=== PATIENT | male | born 1960 | race Caucasian/White ===

== ENCOUNTER 2017-03-23 12:40 | Emergency (ER) | payer OTHER ==
[2017-03-23 12:48] VITALS: RESP 18
[2017-03-23] MEDS ORDERED: ASPIRIN 81 MG CHEW PO STA (13:07)
[2017-03-23] MEDS ORDERED: NITROGLYCERIN OINT 1 INCH/GM PACKET TOPICAL STA (13:07)
--- NOTE | 2017-03-23 13:09 | ED ---
General Adult HPI - General Chief complaint: Chest Pain Stated complaint: Chest Pain Time Seen by Provider: 03/23/17 12:50 Source: patient, RN notes reviewed Mode of arrival: wheelchair Limitations: no limitations - History of Present Illness Initial comments: This is a 57-year-old male who presents emergency Department complaining of chest pain since last night. Patient states it's a pressure/aching feeling. Patient states hasn't changed since last night. There is no radiation of the pain but he does state that there is more difficulty breathing. Patient denies any recent fever chills or cough. Patient denies palpitations. Patient denies any diaphoretic episodes. Patient denies any abdominal pain patient denies nausea vomiting diarrhea. Patient denies headache patient denies numbness weakness. Patient states he does have high blood pressure he is a diabetic and is on cholesterol medication. Patient states he also has had a stroke in the past. Patient states he continues to have some achiness in his chest currently. - Related Data Home Medications Medication Instructions Recorded Confirmed Apixaban [Eliquis] 5 mg PO DAILY 03/23/17 03/23/17 Aspirin 81 mg PO DAILY 03/23/17 03/23/17 Atenolol [Tenormin] 50 mg PO DAILY 03/23/17 03/23/17 Atorvastatin [Lipitor] 40 mg PO DAILY 03/23/17 03/23/17 Celecoxib [CeleBREX] 200 mg PO BID 03/23/17 03/23/17 HYDROcodone/APAP 10-325MG [[place] 2 tab PO Q4HR PRN 03/23/17 03/23/17 10-325] Losartan/Hydrochlorothiazide 1 tab PO DAILY 03/23/17 03/23/17 [Losartan-Hctz 100-25 mg Tab] Multivit-Min/FA/Lycopen/Lutein 1 tab PO DAILY 03/23/17 03/23/17 [Centrum Silver Men Tablet] Potassium Chloride [Klor-Con 20] 20 meq PO DAILY 03/23/17 03/23/17 amLODIPine [Norvasc] 10 mg PO DAILY 03/23/17 03/23/17 metFORMIN HCL 1,000 mg PO BID 03/23/17 03/23/17 Allergies Allergy/AdvReac Type Severity Reaction Status Date / Time No Known Allergies Allergy Verified 03/23/17 13:17 Review of Systems ROS Statement: Those systems with pertinent positive or pertinent negative responses have been documented in the HPI. ROS Other: All systems not noted in ROS Statement are negative. Past Medical History Past Medical History: CVA/TIA, Diabetes Mellitus, Deep Vein Thrombosis (DVT), Hyperlipidemia, Hypertension History of Any Multi-Drug Resistant Organisms: None Reported Past Surgical History: No Surgical Hx Reported Past Psychological History: No Psychological Hx Reported Smoking Status: Former smoker Past Alcohol Use History: None Reported Past Drug Use History: None Reported General Exam - General Exam Comments Initial Comments: GENERAL: Patient is well-developed and well-nourished. Patient is nontoxic and well- hydrated and is in mild distress. ENT: Neck is soft and supple. No significant lymphadenopathy is noted. Oropharynx is clear. Moist mucous membranes. Neck has full range of motion without eliciting any pain. EYES: The sclera were anicteric and conjunctiva were pink and moist. Extraocular movements were intact and pupils were equal round and reactive to light. Eyelids were unremarkable. PULMONARY: Unlabored respirations. Good breath sounds bilaterally. No audible rales rhonchi or wheezing was noted. CARDIOVASCULAR: There is a regular rate and rhythm without any murmurs gallops or rubs. ABDOMEN: Soft and nontender with normal bowel sounds. No palpable organomegaly was noted. There is no palpable pulsatile mass. SKIN: Skin is clear with no lesions or rashes and otherwise unremarkable. NEUROLOGIC: Patient is alert and oriented x3. Cranial nerves II through XII are grossly intact. Motor and sensory are also intact. Normal speech, volume and content. Symmetrical smile. MUSCULOSKELETAL: Normal extremities with adequate strength and full range of motion. No lower extremity swelling or edema. No calf tenderness. LYMPHATICS: No significant lymphadenopathy is noted PSYCHIATRIC: Normal psychiatric evaluation. Normal interpersonal interactions appears functionally intact in deals appropriately with others. No signs of depression. No signs of anxiety. Limitations: no limitations Course Vital Signs 03/23/17 03/23/17 12:46 13:48 Temperature 97.5 F L Pulse Rate 57 L 53 L Respiratory 18 18 Rate Blood Pressure 134/69 112/62 O2 Sat by Pulse 95 94 L Oximetry Medical Decision Making - Medical Decision Making EKG shows a normal sinus rhythm with some sinus arrhythmia at 60 bpm MD interval is 148 QRS is 96 Q-T intervals 418 QTC is 444. Patient states his chest pain was not relieved with nitroglycerin and he continued to have chest pain. All his labs came back I discussed the lab results with the patient and recommended the patient stay. He refused I told him that there could be detrimental, he didn't stay he stated he had a lot of things to do at home and wanted to leave. I told the patient he would have to sign out AGAINST MEDICAL ADVICE and he agreed that he would. Patient also stated he was only 5 minutes away. Patient's daughter was in the room at the time we had this conversation - Lab Data Result diagrams: 03/23/17 13:01 03/23/17 13:01 Lab Results 03/23/17 03/23/17 03/23/17 Range/Units 13: 13: 13:01 WBC 6.4 (3.8-10.6) k/uL RBC 4.79 (4.30-5.90) m/uL Hgb 14.3 (13.0-17.5) gm/dL Hct 42.4 (39.0-53.0) % MCV 88.5 (80.0-100.0) fL MCH 29.8 (25.0-35.0) pg MCHC 33.6 (31.0-37.0) g/dL RDW 14.1 (11.5-15.5) % Plt Count 180 (150-450) k/uL Neutrophils % 66 % Lymphocytes % 19 % Monocytes % 7 % Eosinophils % 5 % Basophils % 1 % Neutrophils # 4.2 (1.3-7.7) k/uL Lymphocytes # 1.2 (1.0-4.8) k/uL Monocytes # 0.4 (0-1.0) k/uL Eosinophils # 0.3 (0-0.7) k/uL Basophils # 0.0 (0-0.2) k/uL PT (9.0-12.0) sec INR (<1.2) APTT (22.0-30.0) sec Sodium 144 (137-145) mmol/L Potassium 4.0 (3.5-5.1) mmol/L Chloride 103 (98-107) mmol/L Carbon Dioxide 28 (22-30) mmol/L Anion Gap 13 mmol/L BUN 16 (9-20) mg/dL Creatinine 0.89 (0.66-1.25) mg/dL Est GFR (MDRD) Af Amer >60 (>60 ml/min/1.73 sqM) Est GFR (MDRD) Non-Af >60 (>60 ml/min/1.73 sqM) Glucose 108 H (74-99) mg/dL Calcium 9.2 (8.4-10.2) mg/dL Magnesium 1.7 (1.6-2.3) mg/dL Total Bilirubin 0.4 (0.2-1.3) mg/dL AST 17 (17-59) U/L ALT 34 (21-72) U/L Alkaline Phosphatase 97 (38-126) U/L Total Creatine Kinase 76 (55-170) U/L CK-MB (CK-2) 0.6 (0.0-2.4) ng/mL CK-MB (CK-2) Rel Index 0.8 Troponin I <0.012 (0.000-0.034) ng/mL Total Protein 6.9 (6.3-8.2) g/dL Albumin 4.3 (3.5-5.0) g/dL 03/23/17 Range/Units 13:01 WBC (3.8-10.6) k/uL RBC (4.30-5.90) m/uL Hgb (13.0-17.5) gm/dL Hct (39.0-53.0) % MCV (80.0-100.0) fL MCH (25.0-35.0) pg MCHC (31.0-37.0) g/dL RDW (11.5-15.5) % Plt Count (150-450) k/uL Neutrophils % % Lymphocytes % % Monocytes % % Eosinophils % % Basophils % % Neutrophils # (1.3-7.7) k/uL Lymphocytes # (1.0-4.8) k/uL Monocytes # (0-1.0) k/uL Eosinophils # (0-0.7) k/uL Basophils # (0-0.2) k/uL PT 10.3 (9.0-12.0) sec INR 1.0 (<1.2) APTT 24.7 (22.0-30.0) sec Sodium (137-145) mmol/L Potassium (3.5-5.1) mmol/L Chloride (98-107) mmol/L Carbon Dioxide (22-30) mmol/L Anion Gap mmol/L BUN (9-20) mg/dL Creatinine (0.66-1.25) mg/dL Est GFR (MDRD) Af Amer (>60 ml/min/1.73 sqM) Est GFR (MDRD) Non-Af (>60 ml/min/1.73 sqM) Glucose (74-99) mg/dL Calcium (8.4-10.2) mg/dL Magnesium (1.6-2.3) mg/dL Total Bilirubin (0.2-1.3) mg/dL AST (17-59) U/L ALT (21-72) U/L Alkaline Phosphatase (38-126) U/L Total Creatine Kinase (55-170) U/L CK-MB (CK-2) (0.0-2.4) ng/mL CK-MB (CK-2) Rel Index Troponin I (0.000-0.034) ng/mL Total Protein (6.3-8.2) g/dL Albumin (3.5-5.0) g/dL Disposition Clinical Impression: Unstable angina pectoris Disposition: Left Against Medical Advice Referrals: Guicho Kaur MD [Primary Care Provider] - 1-2 days Time of Disposition: 14:29
[2017-03-23 13:21] LABS: Basophils % (A) 1 %; Eosinophils # (A) 0.3 k/uL (0-0.7); Eosinophils % (A) 5 %; HCT 42.4 % (39.0-53.0); HDW 2.84; HGB 14.3 gm/dL (13.0-17.5); Luc # (Auto) 0.19; Luc % (Auto) 3; Lymphocytes # (A) 1.2 k/uL (1.0-4.8); Lymphocytes % (A) 19 %; MCH 29.8 pg (25.0-35.0); MCHC 33.6 g/dL (31.0-37.0); MCV 88.5 fL (80.0-100.0); Mean Platelet Volume 7.7; Monocytes # (A) 0.4 k/uL (0-1.0); Monocytes % (A) 7 %; Neutrophils # (A) 4.2 k/uL (1.3-7.7); Neutrophils % (A) 66 %; RBC 4.79 m/uL (4.30-5.90); RDW 14.1 % (11.5-15.5); WBC 6.4 k/uL (3.8-10.6); WBC (Perox) 6.49
[2017-03-23 13:29] LABS: Partial Thromboplastin Time 24.7 sec (22.0-30.0); Prothrombin Time 10.3 sec (9.0-12.0)
[2017-03-23 13:36] LABS: ALT 34 U/L (21-72); AST 17 U/L (17-59); Alkaline Phosphatase 97 U/L (38-126); Anion Gap 13 mmol/L; Blood Urea Nitrogen 16 mg/dL (9-20); Calcium 9.2 mg/dL (8.4-10.2); Carbon Dioxide 28 mmol/L (22-30); Chloride 103 mmol/L (98-107); Glucose 108 mg/dL (74-99); Magnesium 1.7 mg/dL (1.6-2.3); Non-African American GFR(MDRD) >60 (>60 ml/min/1.73 sqM); Sodium 144 mmol/L (137-145); Total Bilirubin 0.4 mg/dL (0.2-1.3); Total Protein 6.9 g/dL (6.3-8.2)
--- NOTE | 2017-03-23 13:36 | XR ---
EXAMINATION TYPE: XR chest 2V DATE OF EXAM: 03/23/2017 COMPARISON: NONE HISTORY: Chest pain TECHNIQUE: Frontal and lateral views of the chest are obtained. FINDINGS: There is no heart failure nor confluent pneumonic infiltrate. There are small calcified gr anuloma in the right lower lobe. Heart size is normal. There is no pleural effusion. Bony thorax is i ntact. IMPRESSION: No active cardiopulmonary disease.
[2017-03-23 13:43] LABS: Creatine Kinase 76 U/L (55-170)
[2017-03-23 13:55] LABS: Creatine Kinase MB 0.6 ng/mL (0.0-2.4); Troponin I <0.012 ng/mL (0.000-0.034)
[2017-03-23 14:42] VITALS: BP 127/84; PULSE 62; TEMP 98
== END 2017-03-23 14:41 | disposition left against medical advice (07) ==
LOC: EC 12:40
DX: I20.0 Unstable angina (principal); I49.8 Other specified cardiac arrhythmias; I10 Essential (primary) hypertension; E11.9 Type 2 diabetes mellitus without complications; E78.5 Hyperlipidemia, unspecified; Z53.29 Procedure and treatment not carried out because of patient's decision for other reasons; Z86.718 Personal history of other venous thrombosis and embolism; Z86.73 Personal history of transient ischemic attack (TIA), and cerebral infarction without residual deficits; Z79.01 Long term (current) use of anticoagulants; Z79.82 Long term (current) use of aspirin; Z79.84 Long term (current) use of oral hypoglycemic drugs; Z79.899 Other long term (current) drug therapy; Z87.891 Personal history of nicotine dependence
CPT/HCPCS: 36415; 71020; 80053; 82550; 82553; 83735; 84484; 85025; 85610; 85730; 93005; 99285

== ENCOUNTER → 2017-09-11 | Outpatient (CLI) | payer MEDICARE ==
--- NOTE | 2017-09-13 09:30 | MR ---
EXAMINATION TYPE: MR lumbar spine wo con DATE OF EXAM: 09/11/2017 COMPARISON: NONE HISTORY: Back pain and radiculopathy TECHNIQUE: Multiplanar, multisequence images of the lumbar spine were acquired. FINDINGS: There is mild anterior wedge compression deformity of the L2 vertebral body without bone ma rrow edema, therefore chronic. No retropulsion. Vertebral body height loss is less than 30% (approxim ately 27%). Remainder the vertebral body heights are maintained throughout the lumbar spine. Vertebra l body alignment is maintained throughout the lumbar spine. Multilevel disc desiccation is seen. Mult iple Schmorl's nodes are present as type II Modic endplate changes. L1-L2: There is a broad-based disc bulge resulting in mild bilateral neural foraminal narrowing. Mini mal facet arthropathy is present there is no spinal canal stenosis. No focal disc herniation. L2-L3: There is a broad-based disc bulge creating moderate bilateral neural foraminal narrowing in co mbination with facet arthropathy and mild spinal canal stenosis in combination with ligamentum flavum buckling. There is undulation of the nerve roots. L3-L4: There is a broad-based disc bulge creating moderate left and mild right neuroforaminal narrowi ng and moderate spinal canal stenosis. Ligamentum flavum buckling and facet arthropathy contribute to these findings and great buckling of the nerve roots. L4-L5: There is a broad-based disc bulge resulting in mild to moderate bilateral neural foraminal tiarra rowing and mild spinal canal stenosis. Again facet arthropathy and ligamentum flavum buckling contrib florina to these findings resulting in buckling of the nerve roots. L5-S1: There is a right eccentric disc bulge creating severe right neural foraminal narrowing and mil d left neural foraminal narrowing. Spinal canal remains patent. Facet arthropathy is seen. IMPRESSION: 1. Moderate multilevel degenerative disc disease resulting in multilevel spinal canal stenosis. Spina l canal stenosis is mild at L2-L3 and L4-L5 and moderate at L3-L4. There is also resultant variable d egree neural foraminal narrowing as described above. This is most severe on the right at L5. 2. Mild old anterior wedge compression deformity of L2 with no bone marrow edema or retropulsion. 3. No focal disc herniation.
== END | disposition home or self-care (01) ==
LOC: RADMRIMAIN 18:37
PROVIDERS: ATTEND Physical Medicine & Rehabilitation
DX: M48.061 Spinal stenosis, lumbar region without neurogenic claudication (principal); M99.73 Connective tissue and disc stenosis of intervertebral foramina of lumbar region; M51.36 Other intervertebral disc degeneration, lumbar region
CPT/HCPCS: 72148

== ENCOUNTER → 2018-03-21 | Outpatient (CLI) | payer MEDICARE ==
--- NOTE | 2018-03-21 10:03 | US ---
EXAMINATION TYPE: US renal artery duplex complet DATE OF EXAM: 03/21/2018 COMPARISON: NONE CLINICAL HISTORY: I10 essential hypertention. HTN for 10 years, uncontrolled for the past 2 days MEASUREMENTS: RENAL SIZE: Rt Kidney: 10.8 x 5.9 x 5.3cm Lt Kidney: 11.7 x 6.4 x 5.1cm RESISTANCE INDEX Right: 0.64 Left: 0.65 RA/AO RATIO (< 3.5 ) Right: 1.1 Left: 1.3 RA VELOCITY ( < 180 cm/s) Right: 154.1cm/s Left: 179.3cm/s Bladder appears unremarkable. *Technical limitations due to patient's body habitus and large amount of overlying bowel content. Vis ualized portions of abdominal aorta appear to have calcifications. Bilateral kidneys show no evidence of hydronephrosis. Right renal artery shows no evidence of stenosis as visualized. Limited evaluatio n of left renal artery due to overlying bowel content, unable to evaluate completely. Good upstroke a t segmentals at hilum. Low resistive waveforms noted throughout IMPRESSION: No convincing evidence of renal arterial stenosis although the left renal artery is suboptimally eval uated due to overlying bowel gas. No hydronephrosis or nephrolithiasis is visualized.
== END | disposition home or self-care (01) ==
LOC: RADUSMAIN 07:59
PROVIDERS: ATTEND Family Medicine
DX: I10 Essential (primary) hypertension (principal)
CPT/HCPCS: 93975

== ENCOUNTER → 2018-04-04 | Outpatient (CLI) | payer MEDICARE ==
--- NOTE | 2018-04-05 08:26 | ECHOF ---
Referral Reason:I10 Malignant Hypertension MEASUREMENTS -------- HEIGHT: 182.9 cm WEIGHT: 152.0 kg BP: 194/103 RVIDd: 3.9 cm (< 3.3) IVSd: 1.6 cm (0.6 - 1.1) LVIDd: 5.3 cm (3.9 - 5.3) LVPWd: 1.5 cm (0.6 - 1.1) IVSs: 1.8 cm LVIDs: 3.5 cm LVPWs: 1.9 cm LA Diam: 1.9 cm (2.7 - 3.8) LAESV Index (A-L): 30.28 ml/m Ao Diam: 3.2 cm (2.0 - 3.7) AV Cusp: 2.2 cm (1.5 - 2.6) MV EXCURSION: 16.009 mm (> 18.000) MV EF SLOPE: 99 mm/s (70 - 150) EPSS: 0.5 cm MV E Kemar: 1.03 m/s MV DecT: 274 ms MV A Kemar: 1.13 m/s MV E/A Ratio: 0.92 FINDINGS -------- Sinus rhythm. This was a technically adequate study. The left ventricular size is normal. There is moderate concentric left ventricular hypertrophy. O verall left ventricular systolic function is normal with, an EF between 55 - 60 %. The right ventricle is moderately enlarged. LA is midly dilated 29-33ml/m2. The right atrium is normal in size. There is mild aortic valve sclerosis. The mitral valve is normal. Mild mitral regurgitation is present. The tricuspid valve appears structurally normal. The pulmonic valve was not well visualized. There is no pulmonic regurgitation present. The aortic root size is normal. Normal inferior vena cava with normal inspiratory collapse consistent with estimated right atrial pre ssure of 5 mmHg. The inferior vena cava is mildly dilated. There is no pericardial effusion. CONCLUSIONS -------- 1. Sinus rhythm. 2. This was a technically adequate study. 3. The left ventricular size is normal. 4. There is moderate concentric left ventricular hypertrophy. 5. Overall left ventricular systolic function is normal with, an EF between 55 - 60 %. 6. The right ventricle is moderately enlarged. 7. LA is midly dilated 29-33ml/m2. 8. There is mild aortic valve sclerosis. 9. Mild mitral regurgitation is present. 10. The tricuspid valve appears structurally normal. 11. The pulmonic valve was not well visualized. 12. There is no pulmonic regurgitation present. 13. The aortic root size is normal. 14. Normal inferior vena cava with normal inspiratory collapse consistent with estimated right atrial pressure of 5 mmHg. 15. The inferior vena cava is mildly dilated. 16. There is no pericardial effusion. CLINICAL REHABILITATION SPECIALIST: Dinah Christina RDCS
== END | disposition home or self-care (01) ==
LOC: RADECHMAIN 12:51
PROVIDERS: ATTEND Family Medicine
DX: I34.0 Nonrheumatic mitral (valve) insufficiency (principal); I35.8 Other nonrheumatic aortic valve disorders
CPT/HCPCS: 93306

== ENCOUNTER 2020-10-01 22:44 | Observation (INO) | payer MEDICARE ==
[2020-10-01] MEDS ORDERED: SODIUM CHLORIDE 0.9% 1,000 ML IV STA (23:00)
[2020-10-01 23:06] LABS: Glucose,Whole Blood 425 mg/dL (75-99)
[2020-10-01 23:32] LABS: Basophils % (A) 1 %; Eosinophils # (A) 0.2 k/uL (0-0.7); Eosinophils % (A) 4 %; HCT 40.1 % (39.0-53.0); HGB 13.3 gm/dL (13.0-17.5); Lymphocytes # (A) 1.4 k/uL (1.0-4.8); Lymphocytes % (A) 29 %; MCH 28.2 pg (25.0-35.0); MCHC 33.1 g/dL (31.0-37.0); MCV 84.9 fL (80.0-100.0); Mean Platelet Volume 7.9; Monocytes # (A) 0.3 k/uL (0-1.0); Monocytes % (A) 7 %; Neutrophils # (A) 2.9 k/uL (1.3-7.7); Neutrophils % (A) 59 %; Platelet Count 182 k/uL (150-450); RBC 4.72 m/uL (4.30-5.90); RDW 13.5 % (11.5-15.5); WBC 4.9 k/uL (3.8-10.6)
--- NOTE | 2020-10-01 23:33 | ED ---
Neuro HPI - General Chief Complaint: Neuro Symptoms/Deficit Stated Complaint: Lt arm/leg numbness Time Seen by Provider: 10/01/20 23:00 Source: patient Mode of arrival: wheelchair Limitations: no limitations - Related Data Home Medications: Home Medications Medication Instructions Recorded Confirmed Apixaban [Eliquis] 5 mg PO DAILY 03/23/17 03/23/17 Aspirin 81 mg PO DAILY 03/23/17 03/23/17 Atorvastatin [Lipitor] 40 mg PO DAILY 03/23/17 03/23/17 Celecoxib [CeleBREX] 200 mg PO BID 03/23/17 03/23/17 HYDROcodone/APAP 10-325MG [[place] 2 tab PO Q4HR PRN 03/23/17 03/23/17 10-325] Losartan/Hydrochlorothiazide 1 tab PO DAILY 03/23/17 03/23/17 [Losartan-Hctz 100-25 mg Tab] Multivit-Min/FA/Lycopen/Lutein 1 tab PO DAILY 03/23/17 03/23/17 [Centrum Silver Men Tablet] Potassium Chloride [Klor-Con 20] 20 meq PO DAILY 03/23/17 03/23/17 amLODIPine [Norvasc] 10 mg PO DAILY 03/23/17 03/23/17 atenoloL [Tenormin] 50 mg PO DAILY 03/23/17 03/23/17 metFORMIN HCL 1,000 mg PO BID 03/23/17 03/23/17 Allergies/Adverse Reactions: Allergies Allergy/AdvReac Type Severity Reaction Status Date / Time No Known Allergies Allergy Verified 10/01/20 22:58 Review of Systems ROS Statement: Those systems with pertinent positive or pertinent negative responses have been documented in the HPI. ROS Other: All systems not noted in ROS Statement are negative. General Exam Limitations: no limitations Stroke MDM - Lab Data Result diagrams: 10/01/20 23:12 10/01/20 23:12 Lab Results 10/01/20 10/01/20 10/01/20 Range/Units 23:04 23:12 23:12 WBC 4.9 (3.8-10.6) k/uL RBC 4.72 (4.30-5.90) m/uL Hgb 13.3 (13.0-17.5) gm/dL Hct 40.1 (39.0-53.0) % MCV 84.9 (80.0-100.0) fL MCH 28.2 (25.0-35.0) pg MCHC 33.1 (31.0-37.0) g/dL RDW 13.5 (11.5-15.5) % Plt Count 182 (150-450) k/uL MPV 7.9 Neutrophils % 59 % Lymphocytes % 29 % Monocytes % 7 % Eosinophils % 4 % Basophils % 1 % Neutrophils # 2.9 (1.3-7.7) k/uL Lymphocytes # 1.4 (1.0-4.8) k/uL Monocytes # 0.3 (0-1.0) k/uL Eosinophils # 0.2 (0-0.7) k/uL Basophils # 0.0 (0-0.2) k/uL PT 10.4 (9.0-12.0) sec INR 1.0 (<1.2) APTT 22.7 (22.0-30.0) sec Sodium (137-145) mmol/L Potassium (3.5-5.1) mmol/L Chloride (98-107) mmol/L Carbon Dioxide (22-30) mmol/L Anion Gap mmol/L BUN (9-20) mg/dL Creatinine (0.66-1.25) mg/dL Est GFR (CKD-EPI)AfAm (>60 ml/min/1.73 sqM) Est GFR (CKD-EPI)NonAf (>60 ml/min/1.73 sqM) Glucose (74-99) mg/dL POC Glucose (mg/dL) 425 H (75-99) mg/dL POC Glu Welding Machine Operator ID Hortencia Graham Calcium (8.4-10.2) mg/dL Total Bilirubin (0.2-1.3) mg/dL AST (17-59) U/L ALT (4-49) U/L Alkaline Phosphatase (38-126) U/L Troponin I (0.000-0.034) ng/mL Total Protein (6.3-8.2) g/dL Albumin (3.5-5.0) g/dL 10/01/20 10/01/20 Range/Units 23:12 23:12 WBC (3.8-10.6) k/uL RBC (4.30-5.90) m/uL Hgb (13.0-17.5) gm/dL Hct (39.0-53.0) % MCV (80.0-100.0) fL MCH (25.0-35.0) pg MCHC (31.0-37.0) g/dL RDW (11.5-15.5) % Plt Count (150-450) k/uL MPV Neutrophils % % Lymphocytes % % Monocytes % % Eosinophils % % Basophils % % Neutrophils # (1.3-7.7) k/uL Lymphocytes # (1.0-4.8) k/uL Monocytes # (0-1.0) k/uL Eosinophils # (0-0.7) k/uL Basophils # (0-0.2) k/uL PT (9.0-12.0) sec INR (<1.2) APTT (22.0-30.0) sec Sodium 134 L (137-145) mmol/L Potassium 3.1 L (3.5-5.1) mmol/L Chloride 90 L (98-107) mmol/L Carbon Dioxide 33 H (22-30) mmol/L Anion Gap 11 mmol/L BUN 19 (9-20) mg/dL Creatinine 1.25 (0.66-1.25) mg/dL Est GFR (CKD-EPI)AfAm 71 (>60 ml/min/1.73 sqM) Est GFR (CKD-EPI)NonAf 62 (>60 ml/min/1.73 sqM) Glucose 427 H (74-99) mg/dL POC Glucose (mg/dL) (75-99) mg/dL POC Glu Welding Machine Operator ID Calcium 9.2 (8.4-10.2) mg/dL Total Bilirubin 0.5 (0.2-1.3) mg/dL AST 15 L (17-59) U/L ALT 19 (4-49) U/L Alkaline Phosphatase 102 (38-126) U/L Troponin I <0.012 (0.000-0.034) ng/mL Total Protein 7.1 (6.3-8.2) g/dL Albumin 4.3 (3.5-5.0) g/dL - EKG Data -: EKG Interpreted by Me (PG shows sinus rhythm 83 IA 158 QRS 158 QTc 517) Past Medical History Past Medical History: CVA/TIA, Diabetes Mellitus, Deep Vein Thrombosis (DVT), Hyperlipidemia, Hypertension History of Any Multi-Drug Resistant Organisms: None Reported Past Surgical History: No Surgical Hx Reported Past Psychological History: No Psychological Hx Reported Smoking Status: Never smoker Past Alcohol Use History: None Reported Past Drug Use History: None Reported Course Vital Signs 10/01/20 10/01/20 10/02/20 22:51 23:00 01:23 Temperature 98.3 F Pulse Rate 81 78 80 Respiratory 20 18 18 Rate Blood Pressure 195/82 137/82 135/79 O2 Sat by Pulse 96 98 98 Oximetry Disposition Clinical Impression: Cerebrovascular accident (CVA), Transient cerebral ischemia Disposition: ADMITTED IP TO THIS HOSP Condition: Fair Is patient prescribed a controlled substance at d/c from ED?: No Referrals: Lilian Guillory MD [Primary Care Provider] - 1-2 days
--- NOTE | 2020-10-01 23:33 | CT ---
EXAMINATION TYPE: CT brain wo con for TPA DATE OF EXAM: 10/01/2020 COMPARISON: None HISTORY: left arm and leg numbness. rule out stroke CT DLP: 1131.4 mGycm Automated exposure control for dose reduction was used. There is mild cerebral atrophy. There is no mass effect nor midline shift. There is no sign of intrac ranial hemorrhage. There is white matter and shi matter hypodensity that measures 4 x 2 cm in the ri ght posterior frontal lobe. The calvarium is intact. The skull base is intact. There is mild white ma tter hypodensity also in the left frontal lobe. IMPRESSION: There is old or subacute shi and white matter infarct right posterior frontal lobe. No hemorrhage. S mall old lacunar infarct in the white matter left frontal lobe.
[2020-10-01 23:41] LABS: Partial Thromboplastin Time 22.7 sec (22.0-30.0); Prothrombin Time 10.4 sec (9.0-12.0)
[2020-10-01 23:45] LABS: Albumin 4.3 g/dL (3.5-5.0); Calcium 9.2 mg/dL (8.4-10.2); Potassium 3.1 mmol/L (3.5-5.1); Total Bilirubin 0.5 mg/dL (0.2-1.3); Total Protein 7.1 g/dL (6.3-8.2)
--- NOTE | 2020-10-02 00:39 | CT ---
EXAMINATION TYPE: CT angio head neck DATE OF EXAM: 10/02/2020 COMPARISON: None HISTORY: Left arm/leg numbness. history of previous stroke CT DLP: 937.5 mGycm Automated exposure control for dose reduction was used. CONTRAST: Performed with IV Contrast, patient injected with 65ml used 35 wasted mL of Isovue 370. Images were obtained from the aortic arch to the vertex of the brain with IV contrast and 3-D post pr ocessed images. There is no evidence of aneurysm at the aortic arch. There is normal branching pattern of the great v essels on the aortic arch. There is bilateral arterial flow in the subclavian arteries. There is augustin rial flow in the common internal and external carotid arteries bilaterally. There is some plaque form ation at the carotid artery bifurcations and approximate 30% stenosis of the proximal right internal carotid artery. There is less than 10% stenosis proximal left internal carotid artery. There is arter ial flow in the left vertebral artery. I see no flow in the right vertebral artery. There is no evide nce of carotid or vertebral artery aneurysm. There is arterial flow in the vertebrobasilar artery system. There is arterial flow in the anterior middle and posterior cerebral arteries bilaterally. There is n o mass effect. I see no evidence of intracranial aneurysm or neovascularity. I see no evidence of int racranial hemodynamic arterial stenosis. There is normal contrast opacification of the venous sinuses . There is evidence of infarct in the right posterior frontal lobe but no evidence of hemodynamic yuriy nosis of the right anterior cerebral artery. 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 Mild plaque formation at the carotid artery bifurcations without evidence of hemodynamic stenosis of the carotid arteries.
[2020-10-02] MEDS ORDERED: ASPIRIN 325 MG TAB PO STA (00:57)
[2020-10-02] MEDS ORDERED: POTASSIUM BICARBONATE/CIT AC 20 MEQ TABLET.EFF PO ONE (00:57)
[2020-10-02] MEDS ORDERED: SODIUM CHLORIDE 0.9% 1,000 ML IV SCH (01:00)
[2020-10-02] MEDS: SODIUM CHLORIDE 0.9% 1,000 ML IV SCH ×2 (01:33→11:28)
--- NOTE | 2020-10-02 04:15 | P.HPIM ---
History of Present Illness H&P Date: 10/02/20 Patient is a 58-year-old male with a PMH of type II DM, hypertension, hyperlipidemia, history of DVT on Eliquis, chronic left lower extremity edema, and history of CVA with residual left-sided weakness who presented to the emergency room with left arm numbness and tingling. The patient reports that he was in his usual state of health and had fallen asleep on the couch watching television earlier today when he woke up to his left arm feeling numb at around 2 PM. He initially thought that he may have slept the wrong way but the numbness persisted after 1-2 hours, at which time he became alarmed and decided to come to the emergency room. The patient notes that he initially suffered a CVA with left-sided paresis 5 years ago continues to need a cane to walk. Aside from the left arm numbness and tingling extending up to the shoulder, he denied additional complaints. Denied weakness, numbness, tingling elsewhere. Denied visual changes, facial drooping, speech abnormalities, or gait abnormalities. He notes that the tingling has improved somewhat since initial onset. In the emergency room, a brain CT revealed old versus subacute shi and white matter infarct in the right posterior frontal lobe along with a small old lacunar infarct in the white matter in the left frontal lobe. 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 EKG revealed normal sinus rhythm at 83 bpm with T-wave inversions in leads V1 to V2. Laboratory evaluation was remarkable for a sodium 134, potassium 3.1, chloride 90, CO2 33, glucose 427. Review of Systems Pertinent positives and negatives as discussed in HPI, a complete review of systems was performed and all other systems are negative. Past Medical History Past Medical History: CVA/TIA, Diabetes Mellitus, Deep Vein Thrombosis (DVT), Hypertension Additional Past Medical History / Comment(s): CVA 5 yrs ago, perforated lumbar disk History of Any Multi-Drug Resistant Organisms: None Reported Past Surgical History: No Surgical Hx Reported Past Anesthesia/Blood Transfusion Reactions: No Reported Reaction Past Psychological History: No Psychological Hx Reported Smoking Status: Former smoker Past Alcohol Use History: None Reported Additional Past Alcohol Use History / Comment(s): stopped smoking in 2015 Past Drug Use History: None Reported Medications and Allergies Home Medications Medication Instructions Recorded Confirmed Type Apixaban [Eliquis] 5 mg PO DAILY 03/23/17 03/23/17 History Aspirin 81 mg PO DAILY 03/23/17 03/23/17 History Atorvastatin [Lipitor] 40 mg PO DAILY 03/23/17 03/23/17 History Celecoxib [CeleBREX] 200 mg PO BID 03/23/17 03/23/17 History HYDROcodone/APAP 10-325MG [[place] 2 tab PO Q4HR PRN 03/23/17 03/23/17 History 10-325] Losartan/Hydrochlorothiazide 1 tab PO DAILY 03/23/17 03/23/17 History [Losartan-Hctz 100-25 mg Tab] Multivit-Min/FA/Lycopen/Lutein 1 tab PO DAILY 03/23/17 03/23/17 History [Centrum Silver Men Tablet] Potassium Chloride [Klor-Con 20] 20 meq PO DAILY 03/23/17 03/23/17 History amLODIPine [Norvasc] 10 mg PO DAILY 03/23/17 03/23/17 History atenoloL [Tenormin] 50 mg PO DAILY 03/23/17 03/23/17 History metFORMIN HCL 1,000 mg PO BID 03/23/17 03/23/17 History Allergies Allergy/AdvReac Type Severity Reaction Status Date / Time No Known Allergies Allergy Verified 10/01/20 22:58 Physical Exam Vitals: Vital Signs Temp Pulse Pulse Resp BP BP Pulse Ox 10/02/20 03:32 98.1 F 66 18 164/106 99 10/02/20 01:54 98.1 F 66 18 164/106 99 10/02/20 01:23 80 18 135/79 98 10/01/20 23:00 78 18 137/82 98 10/01/20 22:51 98.3 F 81 20 195/82 96 Intake and Output 10/01/20 10/01/20 10/02/20 14:59 22:59 06:59 Other: Weight 145.15 kg 146.77 kg General: non toxic, no distress, appears at stated age, morbidly obese Derm: no unusual rashes/lesions no unusual ecchymoses, warm, dry Head: atraumatic, normocephalic, symmetric Eyes: EOMI, no lid lag, anicteric sclera, pupils equal round reactive to light ENT: Nose and ears atraumatic, no thrush, no pharyngeal erythema Neck: No thyromegaly, no cervical lymphadenopathy, trachea midline, supple Mouth: no lip lesion, mucus membranes moist Cardiovascular: S1S2 reg, no murmur, positive posterior tibial pulse bilateral, left lower extremity 2+ pitting edema to knees with chronic venous stasis changes, capillary refill less than 2 seconds Lungs: CTA bilateral, no rhonchi, no rales , no accessory muscle use Abdominal: soft, nontender to palpation, no guarding, no appreciable organomegaly, normal bowel sounds Ext: no gross muscle atrophy, muscle strength 4 out of 5 in left upper and lower extremities with strength 5 out of 5 on right upper and lower extremities, no contractures, Neuro: CN II-XI grossly intact, light touch intact all 4 extremities, finger to nose within normal limits Psych: Alert, oriented, appropriate affect Results CBC & Chem 7: 10/01/20 23:12 10/01/20 23:12 Labs: Abnormal Lab Results - Last 24 Hours (Table) 10/01/20 10/01/20 Range/Units 23:04 23:12 Sodium 134 L (137-145) mmol/L Potassium 3.1 L (3.5-5.1) mmol/L Chloride 90 L (98-107) mmol/L Carbon Dioxide 33 H (22-30) mmol/L Glucose 427 H (74-99) mg/dL POC Glucose (mg/dL) 425 H (75-99) mg/dL AST 15 L (17-59) U/L Thrombosis Risk Factor Assmnt - Choose All That Apply Any of the Below Risk Factors Present?: No Other Risk Factors: Yes Each Risk Factor Represents 2 Points: Age 61-74 years Each Risk Factor Represents 3 Points: History of DVT/PE Other congenital or acquired thrombophilia - If yes, enter type in comment: Yes Each Risk Factor Represents 5 Points: Stroke (< 1 month) Thrombosis Risk Factor Assessment Total Risk Factor Score: 10 Thrombosis Risk Factor Assessment Level: High Risk Assessment and Plan Plan: TIA versus CVA -Continue with aspirin -Neurology consult -Echocardiogram -Neuro checks every 4 hourly -Fall precautions -Swallow evaluation Hypokalemia -Replace and monitor Chronic conditions: Type II DM, hypertension, hyperlipidemia, history of DVTs -Continue with home medications -Check A1c -Lispro insulin sliding scale blood glucose monitoring DVT prophylaxis -Eliquis The patient is admitted with an anticipated less than 2 midnight stay for evaluation of CVA vs TIA CODE STATUS: Full Code Discussed with: Patient Anticipated discharge date: 1-[address]: Home A total of 35 minutes was spent on the care of this complex patient more than 50% of the time was spent in counseling and care coordination.
[2020-10-02 06:06] LABS: Glucose,Whole Blood 226 mg/dL (75-99)
[2020-10-02] MEDS: POTASSIUM CHLORIDE ER 20 MEQ TAB.ER PO SCH ×2 (06:33→11:25)
[2020-10-02] MEDS: INSULIN ASPART (NovoLOG) 100 UNIT/ML VIAL SQ SCH ×2 (06:33→12:46)
[2020-10-02 08:47] LABS: HCT 34.5 % (39.0-53.0); HGB 11.7 gm/dL (13.0-17.5); MCV 85.3 fL (80.0-100.0); Mean Platelet Volume 7.4; Platelet Count 150 k/uL (150-450); RBC 4.05 m/uL (4.30-5.90); RDW 13.1 % (11.5-15.5); WBC 4.4 k/uL (3.8-10.6)
[2020-10-02] MEDS ORDERED: ASPIRIN 81 MG PO SCH (09:00)
[2020-10-02 09:07] LABS: Calcium 8.6 mg/dL (8.4-10.2); Potassium 3.1 mmol/L (3.5-5.1)
[2020-10-02] MEDS ORDERED: ATORVASTATIN 40 MG TAB PO SCH (10:45)
[2020-10-02] MEDS ORDERED: DULoxetine HCL 60 MG CAPSULE.DR PO SCH (10:45)
[2020-10-02] MEDS ORDERED: cloNIDine HCL 0.2 MG TAB PO SCH (10:45)
[2020-10-02] MEDS ORDERED: MELOXICAM 7.5 MG TAB PO SCH (10:45)
[2020-10-02 11:34] LABS: Glucose,Whole Blood 224 mg/dL (75-99)
[2020-10-02] MEDS ORDERED: HYDROcodone/APAP 10-325MG 1 EACH TAB PO SCH ×2 (11:45→21:00)
--- NOTE | 2020-10-02 12:56 | P.CNNES ---
History of Present Illness Consult date: 10/02/20 Requesting physician: Zach Wynn Reason for Consult: CVA, TIA History of Present Illness: Patient is a 60-year-old male with history of hypertension, diabetes, hyperlipidemia, history of DVT and history of CVA with residual left leg weakness came to the hospital yesterday at 10:44 PM with left arm numbness and tingling. Patient states that he took a nap for an hour in his recliner from 5 to 6 PM. When he woke up at around 6, he noticed numbness of the left arm as if it was asleep. He does not remember sleeping with leaning on the left side, and the arm rest of the recliner is soft. He denied any weakness of the left upper extremity or anywhere else, slurred speech facial droop, problem with the vision no headache or diplopia. Gait was fine. He waited, as the symptoms persisted for couple hours, he decided to come to the ER. Vital signs on arrival blood pressure 195/82, pulse rate 81 temperature 98.3. Most recent blood pressure is 164/106 Patient takes metformin, aspirin 81 mg, Celebrex 200 mg twice a day, Lipitor 40 mg, Eliquis 5 mg daily, [place] atenolol, Flexeril, chlorthalidone, hydralazine, Cymbalta 60 mg, B12, clonidine 0.2 mg 3 times a day, Lasix 40 mg and gabapentin 800 mg [address] head showed old or subacute shi-white matter infarct right posterior frontal lobe. No hemorrhage. Small old lacunar infarct in the white matter left frontal lobe. On my review, the infarct is chronic, and involves the right JOANN territory parasagittal region frontal lobe. 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 Mild plaque formation at the carotid artery bifurcations without evidence of hemodynamic stenosis of the carotid arteries. Patient's blood test shows normal CBC, PT/PTT, sodium 134 potassium 3.1, normal renal functions. Hepatic panel is normal. Troponin negative. Ramirez virus PCR negative. Patient states that he had suffered from a stroke 5 years ago, which mainly effected his left leg. Patient states that symptoms have improved, but he has difficulty with walking in his left knee rupert up, and it hurts all the time and swells up. Patient states that at the time of stroke was also diagnosed with bilateral DVT for which he is on anticoagulation. He has diabetes. Patient states that he smoked 3 packs per day for 30 years, quit 5 years ago. Review of Systems As above in detail. All other review of systems completely unremarkable. Denies any chest pain shortness of breath wheezing or cough. He denies abdominal pain nausea vomiting diarrhea. Past Medical History Past Medical History: CVA/TIA, Diabetes Mellitus, Deep Vein Thrombosis (DVT), Hypertension Additional Past Medical History / Comment(s): CVA 5 yrs ago, perforated lumbar disk History of Any Multi-Drug Resistant Organisms: None Reported Past Surgical History: No Surgical Hx Reported Past Anesthesia/Blood Transfusion Reactions: No Reported Reaction Past Psychological History: No Psychological Hx Reported Smoking Status: Former smoker Past Alcohol Use History: None Reported Additional Past Alcohol Use History / Comment(s): stopped smoking in 2015 Past Drug Use History: None Reported Medications and Allergies Home Medications Medication Instructions Recorded Confirmed Type Apixaban [Eliquis] 5 mg PO DAILY 03/23/17 10/02/20 History Aspirin 81 mg PO DAILY 03/23/17 10/02/20 History Atorvastatin [Lipitor] 40 mg PO DAILY 03/23/17 10/02/20 History Celecoxib [CeleBREX] 200 mg PO BID 03/23/17 10/02/20 History HYDROcodone/APAP 10-325MG [[place] 2 tab PO BID 03/23/17 10/02/20 History 10-325] Multivit-Min/FA/Lycopen/Lutein 1 tab PO DAILY 03/23/17 10/02/20 History [Centrum Silver Men Tablet] Potassium Chloride [Klor-Con 20] 20 meq PO DAILY 03/23/17 10/02/20 History atenoloL [Tenormin] 50 mg PO DAILY 03/23/17 10/02/20 History metFORMIN HCL 1,000 mg PO BID 03/23/17 10/02/20 History Chlorthalidone 25 mg PO DAILY 10/02/20 10/02/20 History Cyanocobalamin (Vitamin B-12) 1,000 mcg PO DAILY 10/02/20 10/02/20 History [Vitamin B-12] Cyclobenzaprine [Flexeril] 10 mg PO BID 10/02/20 10/02/20 History DULoxetine HCL [Cymbalta] 60 mg PO DAILY 10/02/20 10/02/20 History Furosemide [Lasix] 40 mg PO DAILY 10/02/20 10/02/20 History Gabapentin [Neurontin] 800 mg PO TID 10/02/20 10/02/20 History cloNIDine HCL [Catapres] 0.2 mg PO TID 10/02/20 10/02/20 History hydrALAZINE HCL 50 mg PO TID 10/02/20 10/02/20 History Allergies Allergy/AdvReac Type Severity Reaction Status Date / Time No Known Allergies Allergy Verified 10/02/20 09:02 Physical Examination - Vital Signs Vital Signs: Vital Signs Temp Pulse Pulse Resp BP BP Pulse Ox 10/02/20 03:32 98.1 F 66 18 164/106 99 10/02/20 01:54 98.1 F 66 18 164/106 99 10/02/20 01:23 80 18 135/79 98 10/01/20 23:00 78 18 137/82 98 10/01/20 22:51 98.3 F 81 20 195/82 96 Intake and Output 10/01/20 10/02/20 10/02/20 22:59 06:59 14:59 Other: # Voids 1 Weight 145.15 kg 146.7 kg On examination patient is a late middle aged male, in no acute distress. Patient is alert, awake oriented to time place and person, speech and language functions are normal. Attention, concentration and fund of knowledge adequate. On cranial nerve exam his pupils are round and reactive to light, visual paula are full on confrontation, extraocular muscles are intact with no nystagmus. Face is symmetric, tongue protrudes to the midline. Palatal elevation and sensation normal, hearing and shoulder shrug normal. On muscle strength testing there is no pronator drift and the strength is normal in both arms distally and proximally. The strength is normal in the right lower limb. In the left lower limb, his hip flexion is 5, knee extension 5-, ankle dorsiflexion 5, toe extension 5-. Reflexes are absent and plantars are downgoing. Sensory touch is equal with no neglect. No ataxia for [id number] testing, tone and bulk of muscles normal. Gait deferred. On general examination is a carotid bruit, service audible, abdomen soft nontender. Peripheral pulses present. Results - Laboratory Findings CBC and BMP: 10/02/20 07:59 10/02/20 07:59 Abnormal Lab Findings: Abnormal Labs 10/01/20 10/01/20 10/02/20 23:04 23:12 06:04 RBC Hgb Hct Sodium 134 L Potassium 3.1 L Chloride 90 L Carbon Dioxide 33 H Glucose 427 H POC Glucose (mg/dL) 425 H 226 H AST 15 L 10/02/20 10/02/20 07:59 07:59 RBC 4.05 L Hgb 11.7 L Hct 34.5 L Sodium 135 L Potassium 3.1 L Chloride 93 L Carbon Dioxide 37 H Glucose 213 H POC Glucose (mg/dL) AST Assessment and Plan Assessment: * Possible TIA manifesting with transient left arm numbness, that now seems to have resolved. * History of CVA with residual mild left leg weakness. 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 * Hypertension * Diabetes * X tobacco use. Plan: * Patient's symptoms have now mostly resolved. * Continue Apixaban and aspirin 81 mg. Unsure why the dose of Eliaqis is 5 mg once daily. Consider increasing dose to twice a day. * Await hemoglobin A1c and lipid panel. * Await 2-D echo. * Continue telemetry monitoring. * Dr. Javy Angelo will resume neurology service in the morning. Addendum: 2-D echo not performed, as patient signed out AGAINST MEDICAL ADVICE Hemoglobin A1c 9.0 consistent with poorly controlled diabetes Lipid panel not checked as patient signed out AGAINST MEDICAL ADVICE.
[2020-10-02 13:57] VITALS: BP 179/73; PULSE 67; RESP 17; TEMP 97.8
[2020-10-02] MEDS ORDERED: GABAPENTIN 400 MG CAP PO SCH (16:00)
--- NOTE | 2020-10-02 17:31 | P.DS ---
Providers Date of admission: 10/02/20 00:57 Expected date of discharge: 10/02/20 Attending physician: Teddy Hall MD Consults: 10/02/20 00:57 Consult Physician Routine Consulting Provider: Teddy Avila Consult Reason/Comments: cvaTIA Do you want consulting provider notified?: Yes Primary care physician: Lilian Guillory MD Hospital Course: 58-year-old male with a PMH of type II DM, hypertension, hyperlipidemia, history of DVT on Eliquis, chronic left lower extremity edema, and history of CVA with residual left-sided weakness who presented to the emergency room with left arm numbness and tingling. The patient reports that he was in his usual state of health and had fallen asleep on the couch watching television earlier today when he woke up to his left arm feeling numb at around 2 PM. He initially thought that he may have slept the wrong way but the numbness persisted after 1- 2 hours, at which time he became alarmed and decided to come to the emergency room. The patient notes that he initially suffered a CVA with left-sided paresis 5 years ago continues to need a cane to walk. Aside from the left arm numbness and tingling extending up to the shoulder, he denied additional complaints. Denied weakness, numbness, tingling elsewhere. Denied visual changes, facial drooping, speech abnormalities, or gait abnormalities. He notes that the tingling has improved somewhat since initial onset. In the emergency room, a brain CT revealed old versus subacute shi and white matter infarct in the right posterior frontal lobe along with a small old lacunar infarct in the white matter in the left frontal lobe. 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 EKG revealed normal sinus rhythm at 83 bpm with T-wave inversions in leads V1 to V2. Laboratory evaluation was remarkable for a sodium 134, potass ium 3.1, chloride 90, CO2 33, glucose 427. Patient was admitted for complete TIA workup. Echo was ordered and patient was placed on telemetry. Patient was seen by neurology service who advised inc reasing the eliquis dose to 5 mg twice a day. Today patient was very eager to leave the hospital and he actually signed AGAINST MEDICAL ADVICE. Patient Condition at Discharge: Fair Plan - Discharge Summary Discharge Rx Participant: No New Discharge Prescriptions: No Action metFORMIN HCL 1,000 mg PO BID Aspirin 81 mg PO DAILY Potassium Chloride [Klor-Con 20] 20 meq PO DAILY Celecoxib [CeleBREX] 200 mg PO BID Atorvastatin [Lipitor] 40 mg PO DAILY Apixaban [Eliquis] 5 mg PO DAILY HYDROcodone/APAP 10-325MG [[place] 10-325] 2 tab PO BID atenoloL [Tenormin] 50 mg PO DAILY Multivit-Min/FA/Lycopen/Lutein [Centrum Silver Men Tablet] 1 tab PO DAILY Cyclobenzaprine [Flexeril] 10 mg PO BID Chlorthalidone 25 mg PO DAILY hydrALAZINE HCL 50 mg PO TID DULoxetine HCL [Cymbalta] 60 mg PO DAILY Cyanocobalamin (Vitamin B-12) [Vitamin B-12] 1,000 mcg PO DAILY cloNIDine HCL [Catapres] 0.2 mg PO TID Furosemide [Lasix] 40 mg PO DAILY Gabapentin [Neurontin] 800 mg PO TID Discharge Medication List Apixaban [Eliquis] 5 mg PO DAILY 03/23/17 [History] Aspirin 81 mg PO DAILY 03/23/17 [History] Atorvastatin [Lipitor] 40 mg PO DAILY 03/23/17 [History] Celecoxib [CeleBREX] 200 mg PO BID 03/23/17 [History] HYDROcodone/APAP 10-325MG [[place] 10-325] 2 tab PO BID 03/23/17 [History] Multivit-Min/FA/Lycopen/Lutein [Centrum Silver Men Tablet] 1 tab PO DAILY 03/23/17 [History] Potassium Chloride [Klor-Con 20] 20 meq PO DAILY 03/23/17 [History] atenoloL [Tenormin] 50 mg PO DAILY 03/23/17 [History] metFORMIN HCL 1,000 mg PO BID 03/23/17 [History] Chlorthalidone 25 mg PO DAILY 10/02/20 [History] Cyanocobalamin (Vitamin B-12) [Vitamin B-12] 1,000 mcg PO DAILY 10/02/20 [History] Cyclobenzaprine [Flexeril] 10 mg PO BID 10/02/20 [History] DULoxetine HCL [Cymbalta] 60 mg PO DAILY 10/02/20 [History] Furosemide [Lasix] 40 mg PO DAILY 10/02/20 [History] Gabapentin [Neurontin] 800 mg PO TID 10/02/20 [History] cloNIDine HCL [Catapres] 0.2 mg PO TID 10/02/20 [History] hydrALAZINE HCL 50 mg PO TID 10/02/20 [History] Follow up Appointment(s)/Referral(s): Teddy Avila MD [STAFF PHYSICIAN] - 1 Week Lilian Guillory MD [Primary Care Provider] - 1-2 days Patient Instructions/Handouts: Transient Ischemic Attack (DC) Discharge Disposition: Left Against Medical Advice
[2020-10-03] MEDS ORDERED: ASPIRIN 325 MG TAB PO SCH (00:57)
== END 2020-10-02 15:00 | disposition left against medical advice (07) ==
LOC: EC 22:44 → 3SCARD 10-02 00:57
PROVIDERS: ADMIT Internal Medicine; ATTEND Internal Medicine
DX: R20.0 Anesthesia of skin (principal); R20.2 Paresthesia of skin; E87.6 Hypokalemia; I65.01 Occlusion and stenosis of right vertebral artery; I69.354 Hemiplegia and hemiparesis following cerebral infarction affecting left non-dominant side; E11.9 Type 2 diabetes mellitus without complications; I10 Essential (primary) hypertension; E78.5 Hyperlipidemia, unspecified; M51.26 Other intervertebral disc displacement, lumbar region; R60.0 Localized edema; Z53.29 Procedure and treatment not carried out because of patient's decision for other reasons; Z79.01 Long term (current) use of anticoagulants; Z79.82 Long term (current) use of aspirin; Z79.899 Other long term (current) drug therapy; Z79.1 Long term (current) use of non-steroidal anti-inflammatories (NSAID); Z79.84 Long term (current) use of oral hypoglycemic drugs; Z86.718 Personal history of other venous thrombosis and embolism; Z87.891 Personal history of nicotine dependence; Z20.828 Contact with and (suspected) exposure to other viral communicable diseases
CPT/HCPCS: 96360; 96361; 99285; 36415; 93005; 80053; 80048; 84484; 85025; 85027; 85610; 85730; 83036; 87635; 70496; 70450; 70498; G0378; Q9967

== ENCOUNTER 2022-08-03 23:52 | Emergency (ER) | payer MEDICARE ==
[2022-08-03 23:56] VITALS: TEMP 98.2
[2022-08-04] MEDS ORDERED: ASPIRIN 81 MG PO STA (00:21)
[2022-08-04 00:53] LABS: Basophils % (A) 1 %; Eosinophils # (A) 0.1 k/uL (0-0.7); Eosinophils % (A) 3 %; HCT 37.7 % (39.0-53.0); Lymphocytes # (A) 1.8 k/uL (1.0-4.8); Lymphocytes % (A) 35 %; MCH 28.6 pg (25.0-35.0); MCHC 34.6 g/dL (31.0-37.0); MCV 82.8 fL (80.0-100.0); Mean Platelet Volume 8.1; Monocytes # (A) 0.4 k/uL (0-1.0); Monocytes % (A) 7 %; Neutrophils # (A) 2.8 k/uL (1.3-7.7); Neutrophils % (A) 52 %; Platelet Count 166 k/uL (150-450); RBC 4.55 m/uL (4.30-5.90); RDW 13.6 % (11.5-15.5); WBC 5.3 k/uL (3.8-10.6)
[2022-08-04 01:02] LABS: Albumin 4.1 g/dL (3.5-5.0); Calcium 8.8 mg/dL (8.4-10.2); Magnesium 1.8 mg/dL (1.6-2.3); Potassium 3.2 mmol/L (3.5-5.1); Total Bilirubin 0.3 mg/dL (0.2-1.3); Total Protein 6.6 g/dL (6.3-8.2)
--- NOTE | 2022-08-04 01:03 | XR ---
EXAMINATION TYPE: XR chest 2V DATE OF EXAM: 08/04/2022 COMPARISON: NONE HISTORY: Chest pain TECHNIQUE: 2 views FINDINGS: Heart is normal. Lungs are clear. Diaphragm is normal. Bony thorax is intact. IMPRESSION: Normal chest. No change.
[2022-08-04 01:06] LABS: Partial Thromboplastin Time 26.5 sec (22.0-30.0); Prothrombin Time 10.9 sec (9.0-12.0)
[2022-08-04 01:14] VITALS: RESP 16
[2022-08-04] MEDS ORDERED: POTASSIUM CHLORIDE ER 20 MEQ TAB.ER PO STA (01:20)
--- NOTE | 2022-08-04 02:33 | ED ---
General Adult HPI - General Chief complaint: Chest Pain Stated complaint: Chest Pain, leg swelling Time Seen by Provider: 08/04/22 00:05 Source: patient Mode of arrival: wheelchair Limitations: no limitations - History of Present Illness Initial comments: This patient is a 62-year-old man who arrives here with his son, and expresses concern about chest pains and also left leg swelling. The patient states that he has been having left leg swelling for quite some time, months to years but that seems to be a little worse lately. The left chest pain is something that has been going on for weeks. He did mention to his physician who thought that it was muscular related to his ribs. Patient denies any fever or chills, dyspnea, hemoptysis, palpitations, lightheadedness or syncope. No change in urination or bowel movements. -: month(s) Location: chest, left, lower extremity Radiation: non-radiation Quality: burning Consistency: constant Improves with: none Worsens with: none Associated Symptoms: confusion Treatments Prior to Arrival: other (Diuretic) - Related Data Home Medications Medication Instructions Recorded Confirmed Apixaban [Eliquis] 5 mg PO DAILY 03/23/17 10/02/20 Aspirin 81 mg PO DAILY 03/23/17 10/02/20 Atorvastatin [Lipitor] 40 mg PO DAILY 03/23/17 10/02/20 Celecoxib [CeleBREX] 200 mg PO BID 03/23/17 10/02/20 HYDROcodone/APAP 10-325MG [[place] 2 tab PO BID 03/23/17 10/02/20 10-325] Multivit-Min/FA/Lycopen/Lutein 1 tab PO DAILY 03/23/17 10/02/20 [Centrum Silver Men Tablet] Potassium Chloride [Klor-Con 20] 20 meq PO DAILY 03/23/17 10/02/20 atenoloL [Tenormin] 50 mg PO DAILY 03/23/17 10/02/20 metFORMIN HCL [Glucophage] 1,000 mg PO BID 03/23/17 10/02/20 Chlorthalidone 25 mg PO DAILY 10/02/20 10/02/20 Cyanocobalamin (Vitamin B-12) 1,000 mcg PO DAILY 10/02/20 10/02/20 [Vitamin B-12] Cyclobenzaprine [Flexeril] 10 mg PO BID 10/02/20 10/02/20 DULoxetine HCL [Cymbalta] 60 mg PO DAILY 10/02/20 10/02/20 Furosemide [Lasix] 40 mg PO DAILY 10/02/20 10/02/20 Gabapentin [Neurontin] 800 mg PO TID 10/02/20 10/02/20 cloNIDine HCL [Catapres] 0.2 mg PO TID 10/02/20 10/02/20 hydrALAZINE HCL 50 mg PO TID 10/02/20 10/02/20 Allergies Allergy/AdvReac Type Severity Reaction Status Date / Time No Known Allergies Allergy Verified 08/03/22 23:56 Review of Systems ROS Statement: Those systems with pertinent positive or pertinent negative responses have been documented in the HPI. ROS Other: All systems not noted in ROS Statement are negative. Constitutional: Denies: fever, chills, weakness Respiratory: Denies: cough, dyspnea Cardiovascular: Reports: as per HPI, chest pain, edema (Left leg greater than right). Denies: palpitations, orthopnea, syncope Gastrointestinal: Denies: abdominal pain, vomiting, diarrhea, melena, he matochezia Genitourinary: Denies: dysuria, hematuria Musculoskeletal: Denies: back pain Skin: Denies: rash Neurological: Denies: headache, weakness Past Medical History Past Medical History: CVA/TIA, Diabetes Mellitus, Deep Vein Thrombosis (DVT), Hyperlipidemia, Hypertension Additional Past Medical History / Comment(s): CVA 5 yrs ago, perforated lumbar disk History of Any Multi-Drug Resistant Organisms: None Reported Past Surgical History: No Surgical Hx Reported Past Anesthesia/Blood Transfusion Reactions: No Reported Reaction Past Psychological History: No Psychological Hx Reported Smoking Status: Vaper Past Alcohol Use History: None Reported Past Drug Use History: None Reported General Exam Limitations: no limitations General appearance: alert, in no apparent distress Head exam: Present: atraumatic, normocephalic Eye exam: Present: normal appearance. Absent: scleral icterus, conjunctival injection Neck exam: Present: normal inspection, full ROM Respiratory exam: Present: normal lung sounds bilaterally, chest wall tenderness. Absent: respiratory distress, wheezes, rales, rhonchi, stridor Cardiovascular Exam: Present: regular rate, normal rhythm, normal heart sounds. Absent: systolic murmur, diastolic murmur, rubs, gallop GI/Abdominal exam: Present: soft. Absent: distended, tenderness, guarding, rebound, rigid, mass Extremities exam: Present: full ROM, normal capillary refill, other (There is left leg edema much greater than right. No palpable cord or Homans sign.). Absent: tenderness Back exam: Present: normal inspection Neurological exam: Present: alert Skin exam: Present: warm, dry, intact, normal color. Absent: rash Course Vital Signs 08/03/22 08/04/22 08/04/22 23:53 01:00 02:00 Temperature 98.2 F Pulse Rate 87 68 63 Respiratory 18 16 16 Rate Blood Pressure 208/100 140/74 143/69 O2 Sat by Pulse 96 95 96 Oximetry EKG Findings - EKG Results: EKG: interpreted by MONET, sinus rhythm (Rate 82 bpm) - Blocks, [place], Hypertrophy, ST Abn: AV and intraventricular conduction: right bundle branch block (fixed/intermittent, complete/incomplete) Medical Decision Making - Medical Decision Making Patient is 62-year-old man with 2 complaints. Related to his chest pain, there is reproducible component. The workup here does not reveal any definite cardiac component though he is encouraged to follow up with cardiology regarding possible need for stress test/heart catheterization. The pain is been going on long enough now that one troponin will be acceptable. I related the patient's left leg swelling, this has also been long-standing, and I did recommend compression stocking and further follow-up. - Lab Data Result diagrams: 08/04/22 00:43 08/04/22 00:43 Lab Results 08/04/22 08/04/22 08/04/22 Range/Units 00:43 00:43 00:43 WBC 5.3 (3.8-10.6) k/uL RBC 4.55 (4.30-5.90) m/uL Hgb 13.0 (13.0-17.5) gm/dL Hct 37.7 L (39.0-53.0) % MCV 82.8 (80.0-100.0) fL MCH 28.6 (25.0-35.0) pg MCHC 34.6 (31.0-37.0) g/dL RDW 13.6 (11.5-15.5) % Plt Count 166 (150-450) k/uL MPV 8.1 Neutrophils % 52 % Lymphocytes % 35 % Monocytes % 7 % Eosinophils % 3 % Basophils % 1 % Neutrophils # 2.8 (1.3-7.7) k/uL Lymphocytes # 1.8 (1.0-4.8) k/uL Monocytes # 0.4 (0-1.0) k/uL Eosinophils # 0.1 (0-0.7) k/uL Basophils # 0.0 (0-0.2) k/uL PT 10.9 (9.0-12.0) sec INR 1.0 (<1.2) APTT 26.5 (22.0-30.0) sec D-Dimer 0.34 (<0.60) mg/L FEU Sodium 138 (137-145) mmol/L Potassium 3.2 L (3.5-5.1) mmol/L Chloride 101 (98-107) mmol/L Carbon Dioxide 30 (22-30) mmol/L Anion Gap 7 mmol/L BUN 15 (9-20) mg/dL Creatinine 1.24 (0.66-1.25) mg/dL Est GFR (CKD-EPI)AfAm 71 (>60 ml/min/1.73 sqM) Est GFR (CKD-EPI)NonAf 61 (>60 ml/min/1.73 sqM) Glucose 116 H (74-99) mg/dL Calcium 8.8 (8.4-10.2) mg/dL Magnesium 1.8 (1.6-2.3) mg/dL Total Bilirubin 0.3 (0.2-1.3) mg/dL AST 18 (17-59) U/L ALT 17 (4-49) U/L Alkaline Phosphatase 75 (38-126) U/L Troponin I (0.000-0.034) ng/mL Total Protein 6.6 (6.3-8.2) g/dL Albumin 4.1 (3.5-5.0) g/dL 08/04/22 Range/Units 00:43 WBC (3.8-10.6) k/uL RBC (4.30-5.90) m/uL Hgb (13.0-17.5) gm/dL Hct (39.0-53.0) % MCV (80.0-100.0) fL MCH (25.0-35.0) pg MCHC (31.0-37.0) g/dL RDW (11.5-15.5) % Plt Count (150-450) k/uL MPV Neutrophils % % Lymphocytes % % Monocytes % % Eosinophils % % Basophils % % Neutrophils # (1.3-7.7) k/uL Lymphocytes # (1.0-4.8) k/uL Monocytes # (0-1.0) k/uL Eosinophils # (0-0.7) k/uL Basophils # (0-0.2) k/uL PT (9.0-12.0) sec INR (<1.2) APTT (22.0-30.0) sec D-Dimer (<0.60) mg/L FEU Sodium (137-145) mmol/L Potassium (3.5-5.1) mmol/L Chloride (98-107) mmol/L Carbon Dioxide (22-30) mmol/L Anion Gap mmol/L BUN (9-20) mg/dL Creatinine (0.66-1.25) mg/dL Est GFR (CKD-EPI)AfAm (>60 ml/min/1.73 sqM) Est GFR (CKD-EPI)NonAf (>60 ml/min/1.73 sqM) Glucose (74-99) mg/dL Calcium (8.4-10.2) mg/dL Magnesium (1.6-2.3) mg/dL Total Bilirubin (0.2-1.3) mg/dL AST (17-59) U/L ALT (4-49) U/L Alkaline Phosphatase (38-126) U/L Troponin I <0.012 (0.000-0.034) ng/mL Total Protein (6.3-8.2) g/dL Albumin (3.5-5.0) g/dL Disposition Clinical Impression: Hypokalemia, Leg edema, left, Chest wall pain Disposition: HOME SELF-CARE Condition: Good Instructions (If sedation given, give patient instructions): Chest Pain (ED), Hypokalemia (ED) Is patient prescribed a controlled substance at d/c from ED?: No Referrals: Nonstaff,Physician [Primary Care Provider] - 1-2 days
[2022-08-04 02:47] VITALS: BP 143/69; PULSE 63
== END 2022-08-04 02:48 | disposition home or self-care (01) ==
LOC: EC 23:52
DX: E87.6 Hypokalemia (principal); R60.0 Localized edema; R07.89 Other chest pain; Z86.73 Personal history of transient ischemic attack (TIA), and cerebral infarction without residual deficits; E11.9 Type 2 diabetes mellitus without complications; Z86.718 Personal history of other venous thrombosis and embolism; E78.5 Hyperlipidemia, unspecified; I10 Essential (primary) hypertension; F17.290 Nicotine dependence, other tobacco product, uncomplicated; Z79.82 Long term (current) use of aspirin; Z79.01 Long term (current) use of anticoagulants; Z79.84 Long term (current) use of oral hypoglycemic drugs; Z79.899 Other long term (current) drug therapy
CPT/HCPCS: 36415; 71046; 80053; 83735; 84484; 85025; 85379; 85610; 85730; 99285

== ENCOUNTER 2023-01-08 18:30 | Emergency (ER) | payer MEDICARE ==
[2023-01-08 19:25] VITALS: BP 201/94; PULSE 56; RESP 20; TEMP 97.5
[2023-01-08 19:28] LABS: Glucose,Whole Blood 391 mg/dL (70-110)
== END 2023-01-08 20:23 | disposition left against medical advice (07) ==
LOC: EC 18:30
DX: Z53.21 Procedure and treatment not carried out due to patient leaving prior to being seen by health care provider (principal)
CPT/HCPCS: 36415; 99499

== ENCOUNTER → 2023-02-07 | Outpatient (CLI) | payer MEDICARE ==
[2023-02-07 16:51] LABS: ALT 14 U/L (10-49); AST 10 U/L (14-35); Albumin 4.3 d/dL (3.8-4.9); Albumin/Globulin Ratio 2.05 Ratio (1.60-3.17); Alkaline Phosphatase 78 U/L (41-126); BUN/Creat Ratio 16.46 Ratio (12.00-20.00); Blood Urea Nitrogen 21.4 mg/dL (9.0-27.0); Calcium 9.3 mg/dL (8.7-10.3); Carbon Dioxide 29.6 mmol/L (21.6-31.8); Chloride 102 mmol/L (96-109); Chol/HDL Ratio 2.33 Ratio; Globulin 2.1 d/dL (1.6-3.3); Glucose 128 mg/dL (70-110); LDL Cholesterol,Calculated 49.5 mg/dL (0.0-131.0); Potassium 3.5 mmol/L (3.5-5.5); Sodium 145 mmol/L (135-145); T4, Free (Free Thyroxine) 1.24 ng/dL (0.80-1.80); Total Bilirubin 0.2 mg/dL (0.3-1.2); Total Protein 6.4 d/dL (6.2-8.2); VLDL Calculation 17.88 mg/dL (5.00-40.00)
[2023-02-07 22:21] LABS: Microalbumin Creatinine Ratio <15 mg/g Cr (0-30)
== END | disposition home or self-care (01) ==
LOC: LABWHC1 09:01
PROVIDERS: ATTEND Internal Medicine Endocrinology, Diabetes & Metabolism
DX: E11.65 Type 2 diabetes mellitus with hyperglycemia (principal)
CPT/HCPCS: 36415; 80053; 80061; 82043; 82306; 82570; 84439; 84443

== ENCOUNTER 2025-02-03 07:44 | Observation (INO) | payer MEDICARE ==
--- NOTE | 2025-02-03 08:06 | ED ---
General Adult HPI - General Chief complaint: Chest Pain Stated complaint: chest pain Time Seen by Provider: 02/03/25 07:50 Source: patient, RN notes reviewed, old records reviewed Mode of arrival: ambulatory Limitations: no limitations - History of Present Illness Initial comments: This is a 64-year-old male who presents to the emergency department stating last night at 7 PM he started having chest pain on the left side of his chest. Patient states there was no associated difficulty breathing or shortness of breath. Patient denies any radiation of the pain. Patient states he has had a past medical history significant for stroke he has diabetes high blood pressure and used to be a smoker. Patient states the pain has been pretty persistent. P atient denies anything that seems to relieve it or increase the pain. Patient states is not reproducible. Patient denies any recent fever chills or cough - Related Data Home Medications Medication Instructions Recorded Confirmed Apixaban [Eliquis] 5 mg PO DAILY 03/23/17 10/02/20 Aspirin 81 mg PO DAILY 03/23/17 10/02/20 Atorvastatin [Lipitor] 40 mg PO DAILY 03/23/17 10/02/20 Celecoxib [CeleBREX] 200 mg PO BID 03/23/17 10/02/20 HYDROcodone/APAP 10-325MG [[place] 2 tab PO BID 03/23/17 10/02/20 10-325] Mv-Min/Folic/K1/Lycopen/Lutein 1 tab PO DAILY 03/23/17 10/02/20 [Centrum Silver Men Tablet] Potassium Chloride [Klor-Con 20] 20 meq PO DAILY 03/23/17 10/02/20 atenoloL [Tenormin] 50 mg PO DAILY 03/23/17 10/02/20 metFORMIN HCL [Glucophage] 1,000 mg PO BID 03/23/17 10/02/20 Chlorthalidone 25 mg PO DAILY 10/02/20 10/02/20 Cyanocobalamin (Vitamin B-12) 1,000 mcg PO DAILY 10/02/20 10/02/20 [Vitamin B-12] Cyclobenzaprine [Flexeril] 10 mg PO BID 10/02/20 10/02/20 DULoxetine HCL [Cymbalta] 60 mg PO DAILY 10/02/20 10/02/20 Furosemide [Lasix] 40 mg PO DAILY 10/02/20 10/02/20 Gabapentin [Neurontin] 800 mg PO TID 10/02/20 10/02/20 cloNIDine HCL [Catapres] 0.2 mg PO TID 10/02/20 10/02/20 hydrALAZINE HCL 50 mg PO TID 10/02/20 10/02/20 Allergies Allergy/AdvReac Type Severity Reaction Status Date / Time No Known Allergies Allergy Verified 02/03/25 07:48 Review of Systems ROS Statement: Those systems with pertinent positive or pertinent negative responses have been documented in the HPI. ROS Other: All systems not noted in ROS Statement are negative. Past Medical History Past Medical History: CVA/TIA, Diabetes Mellitus, Deep Vein Thrombosis (DVT), Hyperlipidemia, Hypertension Additional Past Medical History / Comment(s): CVA 5 yrs ago, perforated lumbar disk History of Any Multi-Drug Resistant Organisms: None Reported Past Surgical History: No Surgical Hx Reported Past Anesthesia/Blood Transfusion Reactions: No Reported Reaction Past Psychological History: No Psychological Hx Reported Smoking Status: Vaper Past Alcohol Use History: None Reported Past Drug Use History: None Reported General Exam - General Exam Comments Initial Comments: GENERAL: Patient is well-developed and well-nourished. Patient is nontoxic and well- hydrated and is in mild distress. ENT: Neck is soft and supple. No significant lymphadenopathy is noted. Oropharynx is clear. Moist mucous membranes. Neck has full range of motion without eliciting any pain. EYES: The sclera were anicteric and conjunctiva were pink and moist. Extraocular movements were intact and pupils were equal round and reactive to light. Eyelids were unremarkable. PULMONARY: Unlabored respirations. Good breath sounds bilaterally. No audible rales rhonchi or wheezing was noted. CARDIOVASCULAR: There is a regular rate and rhythm without any murmurs gallops or rubs. ABDOMEN: Soft and nontender with normal bowel sounds. SKIN: Skin is clear with no lesions or rashes and otherwise unremarkable. NEUROLOGIC: Patient is alert and oriented x3. Cranial nerves II through XII are grossly intact. Motor and sensory are also intact. Normal speech, volume and content. Symmetrical smile. MUSCULOSKELETAL: Normal extremities with adequate strength and full range of motion. LYMPHATICS: No significant lymphadenopathy is noted PSYCHIATRIC: Normal psychiatric evaluation. Limitations: no limitations Course Vital Signs 02/03/25 02/03/25 02/03/25 07:46 08:14 11:03 Temperature 98 F Pulse Rate 69 62 64 Respiratory 20 20 16 Rate Blood Pressure 200/95 174/85 164/90 O2 Sat by Pulse 99 95 94 L Oximetry Medical Decision Making - Medical Decision Making EKG is interpreted by myself. EKG shows sinus rhythm at 64 bpm MS is 151 QRS 174 QT interval 451 QTc is 460. Patient's EKG shows no ST segment elevation or depression. Patient does have a right bundle branch block Was pt. sent in by a medical professional or institution ([facility], [employer]PER[employer], urgent care, hospital, or long term...) When possible be specific @ -No Did you speak to anyone other than the patient for history (EMS, parent, family, police, friend...)? What history was obtained from this source @ -No Did you review nursing and triage notes (agree or disagree)? Why? @ -I reviewed and agree with nursing and triage notes Were old charts reviewed (outside hosp., previous admission, EMS record, old EKG, old radiological studies, urgent care reports/EKG's, long term records)? Report findings @ -No old charts were reviewed Differential Diagnosis? @ -Differential Chest Pain: Stable Angina, Unstable Angina, STEMI, NSTEMI Aortic Dissection, Pneumothorax, Musculoskeletal, Esophageal Spasm GERD, Cholecystitis, Pancreatitis, Zoster, this is not meant to be an all-inclusive list. EKG interpreted by me (3pts min.). @ -As above X-rays interpreted by me (1pt min.). @ -Chest x-ray shows no acute abnormality CT interpreted by me (1pt min.). @ -None done U/S interpreted by me (1pt. min.). @ -None done What testing was considered but not performed or refused? (CT, X-rays, U/S, labs)? Why? @ -None What meds were considered but not given or refused? Why? @ -None Did you discuss the management of the patient with other professionals (professionals i.e. [facility], [employer]ING SUPERVISOR, lab, RT, psych nurse, case management social worker, machine molder squeeze, teacher, branch officer, caseworker protective services)? Give summary @ -I spoke with sound physicians he agreed to admit the patient admit the patient really being worse Was smoking cessation discussed for >3mins.? @ -No Was critical care preformed (if so, how long)? @ -No Were there social determinants of health that impacted care today? How? (Homelessness, low income, unemployed, alcoholism, drug addiction, transportation, low edu. Level, literacy, decrease access to med. care, retirement, rehab)? @ -No Was there de-escalation of care discussed even if they declined (Discuss DNR or withdrawal of care, Hospice)? DNR status @ -No What co-morbidities impacted this encounter? (DM, HTN, Smoking, COPD, CAD, Canc er, CVA, ARF, Chemo, Hep., AIDS, mental health diagnosis, sleep apnea, morbid obesity)? @ -None Was patient admitted / discharged? Hospital course, mention meds given and route, prescriptions, significant lab abnormalities, going to OR and other pertinent info. @ -Patient's lab work showed no acute abnormality however I went back into the room he was still experiencing chest pain that was slightly better than it was on his arrival patient will be admitted and cardiology will be consulted Undiagnosed new problem with uncertain prognosis? @ -No Drug Therapy requiring intensive monitoring for toxicity (Heparin, Nitro, Insulin, Cardizem)? @ -No Were any procedures done? @ -No Diagnosis/symptom? @ -Chest pain Acute, or Chronic, or Acute on Chronic? @ -Acute Uncomplicated (without systemic symptoms) or Complicated (systemic symptoms)? @ -Complicated Side effects of treatment? @ -No Exacerbation, Progression, or Severe Exacerbation? @ -No Poses a threat to life or bodily function? How? (Chest pain, USA, NV, pneumonia, PE, COPD, DKA, ARF, appy, cholecystitis, CVA, Diverticulitis, Homicidal, Suicidal, threat to staff... and all critical care pts) @ -Yes this could lead to an NV and endorgan dysfunction - Lab Data Result diagrams: 02/03/25 08:26 02/03/25 09:55 Lab Results 02/03/25 02/03/25 02/03/25 Range/Units 08:26 08:26 08:26 WBC 5.24 (4.50-10.00) 10*3/uL RBC 4.71 (4.40-5.60) 10*6/uL Hgb 13.7 (13.0-17.0) g/dL Hct 40.3 (39.6-50.0) % MCV 85.6 (80.0-97.0) fL MCH 29.1 (27.0-32.0) pg MCHC 34.0 (32.0-37.0) g/dL Plt Count 166 (140-440) 10*3/uL MPV 11.0 (9.5-12.2) fL Immature Gran % (Auto) 0.2 % Neutrophils % 52.3 % Lymphocytes % 37.0 % Monocytes % 7.4 % Eosinophils % 2.3 % Basophils % 0.8 % Immature Gran # 0.01 (0.00-0.04) 10*3/uL Neutrophils # 2.74 (1.80-7.70) 10*3/uL Lymphocytes # 1.94 (0.90-5.00) 10*3/uL Monocytes # 0.39 (0.20-1.00) 10*3/uL Eosinophils # 0.12 (0.04-0.35) 10*3/uL Basophils # 0.04 (0.00-0.10) 10*3/uL PT 11.5 (10.0-12.5) sec INR 1.0 (<1.2) APTT 25.5 (22.0-30.0) sec Sodium (137-145) mmol/L Potassium (3.5-5.1) mmol/L Chloride (98-107) mmol/L Carbon Dioxide (22-30) mmol/L Anion Gap mmol/L BUN (9-20) mg/dL Creatinine (0.66-1.25) mg/dL Est GFR (CKD-EPI)AfAm (>60 ml/min/1.73 sqM) Est GFR (CKD-EPI)NonAf (>60 ml/min/1.73 sqM) Glucose (74-99) mg/dL Calcium (8.4-10.2) mg/dL Magnesium (1.6-2.3) mg/dL Total Bilirubin (0.2-1.3) mg/dL AST (17-59) U/L ALT (4-49) U/L Alkaline Phosphatase (38-126) U/L Troponin I 0.029 (0.000-0.034) ng/mL Total Protein (6.3-8.2) g/dL Albumin (3.5-5.0) g/dL 07/02/25 Range/Units 09:55 WBC (4.50-10.00) 10*3/uL RBC (4.40-5.60) 10*6/uL Hgb (13.0-17.0) g/dL Hct (39.6-50.0) % MCV (80.0-97.0) fL MCH (27.0-32.0) pg MCHC (32.0-37.0) g/dL Plt Count (140-440) 10*3/uL MPV (9.5-12.2) fL Immature Gran % (Auto) % Neutrophils % % Lymphocytes % % Monocytes % % Eosinophils % % Basophils % % Immature Gran # (0.00-0.04) 10*3/uL Neutrophils # (1.80-7.70) 10*3/uL Lymphocytes # (0.90-5.00) 10*3/uL Monocytes # (0.20-1.00) 10*3/uL Eosinophils # (0.04-0.35) 10*3/uL Basophils # (0.00-0.10) 10*3/uL PT (10.0-12.5) sec INR (<1.2) APTT (22.0-30.0) sec Sodium 141 (137-145) mmol/L Potassium 3.6 (3.5-5.1) mmol/L Chloride 99 (98-107) mmol/L Carbon Dioxide 30 (22-30) mmol/L Anion Gap 12 mmol/L BUN 14 (9-20) mg/dL Creatinine 0.94 (0.66-1.25) mg/dL Est GFR (CKD-EPI)AfAm >90 (>60 ml/min/1.73 sqM) Est GFR (CKD-EPI)NonAf 85 (>60 ml/min/1.73 sqM) Glucose 117 H (74-99) mg/dL Calcium 9.4 (8.4-10.2) mg/dL Magnesium 1.9 (1.6-2.3) mg/dL Total Bilirubin 0.5 (0.2-1.3) mg/dL AST 20 (17-59) U/L ALT 18 (4-49) U/L Alkaline Phosphatase 84 (38-126) U/L Troponin I (0.000-0.034) ng/mL Total Protein 7.2 (6.3-8.2) g/dL Albumin 4.5 (3.5-5.0) g/dL Disposition Clinical Impression: Chest pain Disposition: ADMITTED IP TO THIS HOSP Referrals: Anirudh Min DO [Primary Care Provider] - 1-2 days Time of Disposition: 12:30
[2025-02-03] MEDS: ASPIRIN 81 MG PO STA (08:22)
[2025-02-03] MEDS: NITROGLYCERIN OINT 1 INCH/GM PACKET TOPICAL STA (08:24)
[2025-02-03 08:57] LABS: Basophils # (A) 0.04 10*3/uL (0.00-0.10); Basophils % (A) 0.8 %; Eosinophils # (A) 0.12 10*3/uL (0.04-0.35); Eosinophils % (A) 2.3 %; HCT 40.3 % (39.6-50.0); HGB 13.7 g/dL (13.0-17.0); Lymphocytes # (A) 1.94 10*3/uL (0.90-5.00); Lymphocytes % (A) 37.0 %; MCH 29.1 pg (27.0-32.0); MCHC 34.0 g/dL (32.0-37.0); MCV 85.6 fL (80.0-97.0); Monocytes # (A) 0.39 10*3/uL (0.20-1.00); Monocytes % (A) 7.4 %; Neutrophils # (A) 2.74 10*3/uL (1.80-7.70); Neutrophils % (A) 52.3 %; Platelet Count 166 10*3/uL (140-440); RBC 4.71 10*6/uL (4.40-5.60); RDW 13.2 % (11.5-14.5); WBC 5.24 10*3/uL (4.50-10.00)
--- NOTE | 2025-02-03 09:34 | XR ---
EXAMINATION TYPE: XR chest 2V DATE OF EXAM: 02/03/2025 8:47 AM COMPARISON: 08/04/2022 CLINICAL INDICATION: Male, 64 years old with history of Chest Pain: Shortness of breath TECHNIQUE: XR chest 2V views of the chest are obtained. FINDINGS: Scattered senescent parenchymal changes noted. Hyperinflation compatible with COPD. No evidence for infiltrate. No evidence for atelectasis. Heart size is stable. Mediastinal structures are stable and grossly unremarkable. No evidence for hilar prominence. Degenerative changes dorsal spine. IMPRESSION: 1. No evidence for acute pulmonary disease. [facility], , 02/03/2025 9:32 AM
[2025-02-03 09:42] LABS: INR 1.0 (<1.2); Partial Thromboplastin Time 25.5 sec (22.0-30.0); Prothrombin Time 11.5 sec (10.0-12.5)
[2025-02-03 12:01] LABS: ALT 18 U/L (4-49); AST 20 U/L (17-59); African American GFR (CKD) >90 (>60 ml/min/1.73 sqM); Albumin 4.5 g/dL (3.5-5.0); Alkaline Phosphatase 84 U/L (38-126); Anion Gap 12 mmol/L; Blood Urea Nitrogen 14 mg/dL (9-20); Calcium 9.4 mg/dL (8.4-10.2); Carbon Dioxide 30 mmol/L (22-30); Chloride 99 mmol/L (98-107); Glucose 117 mg/dL (74-99); Magnesium 1.9 mg/dL (1.6-2.3); Non-African American GFR(CKD) 85 (>60 ml/min/1.73 sqM); Potassium 3.6 mmol/L (3.5-5.1); Sodium 141 mmol/L (137-145); Total Protein 7.2 g/dL (6.3-8.2)
[2025-02-03] MEDS ORDERED: NITROGLYCERIN SL TABS 0.4 MG TAB SUBLINGUAL PRN (12:30)
[2025-02-03] MEDS ORDERED: DEXTROSE 50% SYRINGE 50 ML IVP PRN ×2 (13:43)
--- NOTE | 2025-02-03 14:13 | P.HPIM ---
History of Present Illness H&P Date: 02/03/25 History of Presenting Illness: Patient is a very pleasant 64-year-old male with a past medical history of hypertension, hyperlipidemia, CVA, DVT on anticoagulation with Eliquis, and [id number] diabetes mellitus. Patient presented to the emergency department with a chief complaint of chest pain. He reports pressure-like pain to left anterior chest starting at rest and remained constant. He denies any associated symptoms including dizziness, lightheadedness, headache, palpitations, shortness of breath, cough or congestion, nausea, vomiting, diaphoresis, or experiencing any numbness/tingling/weakness/swelling in his extremities. Patient denies having any history of heart disease or previous stent placement and denies ever following with a delivery sales worker. Upon arrival to our facility, patient underwent evaluation in the emergency department. Vital signs upon arrival show blood pressure 200/95, heart rate 69, respiratory rate 20, temp 98.0 F, and SpO2 of 98% on room air. EKG completed showing sinus mechanism at 64 bpm with a right bundle branch block otherwise no significant T wave or ST abnormality showing no signs of acute ischemia upon personal review and interpretation. Chest x-ray completed negative for acute cardiopulmonary process. Labs completed and reviewed. CBC unremarkable. Coagulation profile normal findings. BMP unremarkable. Blood glucose 117. Calcium 9.4. Magnesium 1.9. Liver profile normal findings. Troponin was 0.029. Patient reports he had improvement of pain after receiving Nitropaste in the emergency department but states slight pain continues, like he feels it but it is not uncomfortable. Currently rates 1-2 out of 10. Patient admitted under our services with consultation to cardiology. Review of systems: Pertinent positives and negatives as discussed in HPI, a complete review of systems was performed and all other systems are negative. Physical exam: Vital signs reviewed and stable. General: Nontoxic, no distress and appears stated age. Derm: Skin warm and dry, normal coloration for ethnicity. Head: Atraumatic, normocephalic and symmetric. Eyes: EOM's intact, no lid lag, and anicteric sclera Mouth: no lip lesions, mucus membranes moist Cardiovascular: regular rate and rhythm with normal S1S2, soft systolic murmur, positive posterior tibial pulses bilaterally, and cap refill < 2 seconds. Lungs: Respirations even, regular, and unlabored on room air. Lungs CTA bilaterally, no rhonchi, no rales, no wheezing, and no accessory muscle usage. Abdominal: soft, nontender to palpation, no guarding, no appreciable organomegaly Ext: ROM intact. No gross muscle atrophy, no edema, no contractures Neuro: Speech clear, face symmetrical and CN II-XII grossly intact with no noted focal neuro deficits Psych: Alert and oriented to person, place, time, and situation. Appropriate and pleasant affect. Assessment and Plan of Care: Chest pain, rule out acute coronary event Hypertensive urgency Hyperlipidemia -Cardiology consulted, appreciate recommendations -Telemetry monitoring -Trend troponins -Cardiac diet, NPO at midnight -Aspirin 81 mg daily, atorvastatin 40 mg nightly, chlorthalidone 25 mg daily, clonidine 0.25 mg 4 times daily, hydralazine 50 mg 3 times daily, and losartan 100 mg daily. -Echocardiogram History of DVT Continue anticoagulation with Eliquis 5 mg twice daily. History of CVA Continue aspirin 81 mg daily and atorvastatin 40 mg nightly. [id number] diabetes mellitus. Hold Trulicity and metformin and place patient on glycemic protocol with NovoLog sliding scale. Follow-up on hemoglobin A1c results. Data and imaging reviewed: As stated above in HPI The patient is admitted with an anticipated greater than 2 midnight stay for evaluation of chest pain CODE STATUS: Full code DVT prophylaxis: Eliquis Discussed with: Patient, RN, and ED provider Anticipated discharge date: Pending clinical course, likely 24 to [address]: Home Patient was seen independently by Nurse Practitioner. This document was prepared using [employer] dictation software. Please allow for errors in manager audio while rare they do occur. Alexander Alfaro NP rendered care for this patient independently, reviewed the findings and plan as documented in the note above and agree with plan. I did not physically speak with or examine the patient on this date. Past Medical History Past Medical History: CVA/TIA, Diabetes Mellitus, Deep Vein Thrombosis (DVT), Hyperlipidemia, Hypertension Additional Past Medical History / Comment(s): CVA 5 yrs ago, perforated lumbar disk History of Any Multi-Drug Resistant Organisms: None Reported Past Surgical History: No Surgical Hx Reported Past Anesthesia/Blood Transfusion Reactions: No Reported Reaction Past Psychological History: No Psychological Hx Reported Smoking Status: Vaper Past Alcohol Use History: None Reported Past Drug Use History: None Reported Medications and Allergies Home Medications Medication Instructions Recorded Confirmed Type Apixaban [Eliquis] 5 mg PO BID 03/23/17 02/03/25 History Aspirin 81 mg PO DAILY 03/23/17 02/03/25 History Mv-Min/Folic/K1/Lycopen/Lutein 1 tab PO DAILY 03/23/17 02/03/25 History [Centrum Silver Men Tablet] metFORMIN HCL [Glucophage] 1,000 mg PO BID 03/23/17 02/03/25 History Chlorthalidone 25 mg PO DAILY 10/02/20 02/03/25 History Gabapentin [Neurontin] 800 mg PO QID 10/02/20 02/03/25 History hydrALAZINE HCL 50 mg PO TID 10/02/20 02/03/25 History Dulaglutide [Trulicity] 3 mg SQ SA 02/03/25 02/03/25 History Losartan Potassium [Cozaar] 100 mg PO DAILY 02/03/25 02/03/25 History cloNIDine HCL [Catapres] 0.2 mg PO QID 02/03/25 02/03/25 History Allergies Allergy/AdvReac Type Severity Reaction Status Date / Time No Known Allergies Allergy Verified 02/03/25 12:55 Physical Exam Vitals: Vital Signs Temp Pulse Resp BP Pulse Ox 02/03/25 11:03 64 16 164/90 94 L 02/03/25 08:14 62 20 174/85 95 02/03/25 07:46 98 F 69 20 200/95 99 Intake and Output 02/02/25 02/03/25 02/03/25 22:59 06:59 14:59 Other: Weight 147.418 kg Results CBC & Chem 7: 02/03/25 08:26 02/03/25 09:55 Labs: Abnormal Lab Results - Last 24 Hours (Table) 02/03/25 Range/Units 09:55 Glucose 117 H (74-99) mg/dL
[2025-02-03 14:17] LABS: Glucose,Whole Blood 119 mg/dL (70-110)
[2025-02-03 17:09] LABS: Glucose,Whole Blood 131 mg/dL (70-110)
[2025-02-03] MEDS: INSULIN LISPRO (HumaLOG) 100 UNIT/ML 10 mL VL SQ SCH (17:09)
[2025-02-03] MEDS: GABAPENTIN 400 MG CAP PO SCH (17:14)
[2025-02-03] MEDS: NITROGLYCERIN OINT 1 INCH/GM PACKET TOPICAL SCH (17:17)
[2025-02-03] MEDS: LOSARTAN 50 MG TAB PO STA (18:43)
[2025-02-03] MEDS: amLODIPine 5 MG TAB PO STA (18:43)
[2025-02-03] MEDS: APIXABAN 5 MG TAB PO SCH (20:25)
[2025-02-03] MEDS: ATORVASTATIN 40 MG TAB PO SCH (20:26)
[2025-02-03 20:48] LABS: Glucose,Whole Blood 110 mg/dL (70-110)
[2025-02-04 05:07] LABS: Glucose,Whole Blood 116 mg/dL (70-110)
[2025-02-04 08:00] VITALS: TEMP 97.5
[2025-02-04] MEDS ORDERED: ASPIRIN 325 MG TAB PO SCH (09:00)
[2025-02-04] MEDS: MULTIVITAMINS, THERA 1 EACH TAB PO SCH (10:04)
[2025-02-04] MEDS: ASPIRIN 81 MG PO SCH (10:04)
[2025-02-04] MEDS: LOSARTAN 50 MG TAB PO SCH (10:05)
[2025-02-04] MEDS: CHLORTHALIDONE 25 MG TAB PO SCH (10:07)
[2025-02-04] MEDS: amLODIPine 5 MG TAB PO SCH (10:39)
[2025-02-04 11:58] LABS: HCT 41.8 % (39.6-50.0); HGB 13.8 g/dL (13.0-17.0); MCH 28.7 pg (27.0-32.0); MCHC 33.0 g/dL (32.0-37.0); MCV 86.9 FL (80.0-97.0); NRBC Per 100 WBC 0 X 10*3/uL (0.00-0.01); Platelet Count 173 X 10*3/uL (140-440); RBC 4.81 X 10*6/uL (4.40-5.60); RDW 13.4 % (11.5-14.5); WBC 6.01 X 10*3/uL (4.50-10.00)
[2025-02-04 12:58] LABS: Cholesterol 196.00 mg/dL (0.00-200.00); HDL Cholesterol 44.60 mg/dL (40.00-60.00); LDL Cholesterol,Calculated 114.2 mg/dL (0.0-131.0); Triglycerides 186.00 mg/dL (0.00-149.00); VLDL Calculation 37.20 mg/dL (5.00-40.00)
--- NOTE | 2025-02-04 12:58 | P.CRDCN ---
History of Present Illness History of present illness: HISTORY OF PRESENT ILLNESS: This is a 64-year-old male with a past medical history significant for DVT, CVA, hypertension, hyperlipidemia, diabetes. Patient does not follow with a cardiol ogist. We have been asked to see the patient in consultation for chest pain. Patient examined at the bedside. Patient presented to the hospital with a chief complaint of chest discomfort. Patient states he is started having chest pain yesterday morning that felt like a tightness. He states with his history of CVA he became concerned so he came to the emergency room for further evaluation. He did receive nitro which helped his pain. Patient was found to have extremely elevated blood pressures with a reading of 200/95. Patient does report his blood pressures are not well-controlled on an outpatient basis. DIAGNOSTICS: - EKG reveals sinus mechanism with right bundle branch block. - Chest xray negative for acute process - Laboratory data: Troponin negative x 3 - Current home cardiac medications include hydralazine 50 mg 3 times daily, chlorthalidone 25 mg daily, losartan 100 mg daily, Catapres 0.2 mg 3 times daily Eliquis 5 mg twice a day, aspirin 81 mg daily. - Most recent echocardiogram obtained in 2018 revealed ejection fraction 55 to 60%, moderate concentric LVH, mild MR -Patient underwent renal artery duplex in 2018 without evidence of renal artery stenosis - Cardiac catheterization history: Patient denies REVIEW OF SYSTEMS: At the time of my exam: CONSTITUTIONAL: Denies fever or chills. HEENT: Denies blurred vision, vision changes, or eye pain. Denies hemoptysis CARDIOVASCULAR: Denies chest pain. Denies orthopnea. Denies PND. Denies palpitations RESPIRATORY: Denies shortness of breath. GASTROINTESTINAL: Denies abdominal pain. Denies nausea or vomiting. HEMATOLOGIC: Denies bleeding disorders. GENITOURINARY: Denies any blood in urine. SKIN: Denies pruitis. Denies rash. PHYSICAL EXAM: VITAL SIGNS: Reviewed. GENERAL: Well-developed in no acute distress. HEENT: Head is normocephalic. Pupils are equal, round. Sclerae anicteric. Mucous membranes of the mouth are moist. Neck supple. No JVD or thyromegaly LUNGS: Respirations even and unlabored. Lungs essentially clear to auscultation bilaterally. HEART: Regular rate and rhythm. S1 and S2 heard. ABDOMEN: Soft. Nondistended. Nontender. EXTREMITIES: Normal range of motion. No clubbing or cyanosis. Peripheral pulses intact. No lower extremity edema NEUROLOGIC: Awake and alert. Oriented x 3. ASSESSMENT: Chest pain, troponin negative x 3 Hypertensive emergency History of hypertension History of hyperlipidemia History of diabetes History of DVT, on Eliquis outpatient History of CVA Morbid obesity: BMI 40.0 PLAN: An acute coronary event has been ruled out Obtain 2D echo to assess cardiac structure and function Obtain secondary hypertensive labs. Patient did undergo renal artery duplex in 2018 with no evidence of renal artery stenosis Patient has been started on Lipitor per primary medicine Change Catapres to 0.3 mg 3 times daily Add amlodipine 10 mg daily Continue to monitor blood pressure Will plan for outpatient stress testing when blood pressures are well-controlled Further recommendations pending patient course Nurse practitioner note has been reviewed by physician. Signing provider agrees with the documented findings, assessment, and plan of care documented by REHAB NURSING TECH as a scribe. Past Medical History Past Medical History: CVA/TIA, Diabetes Mellitus, Deep Vein Thrombosis (DVT), Hyperlipidemia, Hypertension Additional Past Medical History / Comment(s): CVA 5 yrs ago, perforated lumbar disk History of Any Multi-Drug Resistant Organisms: None Reported Past Surgical History: No Surgical Hx Reported Past Anesthesia/Blood Transfusion Reactions: No Reported Reaction Past Psychological History: No Psychological Hx Reported Smoking Status: Vaper Past Alcohol Use History: None Reported Past Drug Use History: None Reported Medications and Allergies Home Medications Medication Instructions Recorded Confirmed Type Apixaban [Eliquis] 5 mg PO BID 03/23/17 02/03/25 History Aspirin 81 mg PO DAILY 03/23/17 02/03/25 History Mv-Min/Folic/K1/Lycopen/Lutein 1 tab PO DAILY 03/23/17 02/03/25 History [Centrum Silver Men Tablet] metFORMIN HCL [Glucophage] 1,000 mg PO BID 03/23/17 02/03/25 History Chlorthalidone 25 mg PO DAILY 10/02/20 02/03/25 History Gabapentin [Neurontin] 800 mg PO QID 10/02/20 02/03/25 History hydrALAZINE HCL 50 mg PO TID 10/02/20 02/03/25 History Dulaglutide [Trulicity] 3 mg SQ SA 02/03/25 02/03/25 History Losartan Potassium [Cozaar] 100 mg PO DAILY 02/03/25 02/03/25 History cloNIDine HCL [Catapres] 0.2 mg PO QID 02/03/25 02/03/25 History Allergies Allergy/AdvReac Type Severity Reaction Status Date / Time No Known Allergies Allergy Verified 02/03/25 12:55 Physical Exam Vitals: Vital Signs Temp Pulse Pulse Pulse Resp BP BP 02/04/25 07:00 97.5 F L 76 17 02/04/25 02:10 98.0 F 65 16 154/70 02/03/25 22:30 97.8 F 91 16 193/110 02/03/25 20:25 185/103 02/03/25 19:34 75 18 156/95 02/03/25 19:31 74 132/94 02/03/25 19:15 79 18 158/104 02/03/25 18:40 93 20 180/119 02/03/25 17:55 78 184/89 02/03/25 17:25 78 18 210/102 02/03/25 16:07 83 18 150/103 02/03/25 15:08 87 18 172/110 02/03/25 14:19 65 18 169/94 BP Pulse Ox 02/04/25 07:00 166/83 97 02/04/25 02:10 95 02/03/25 22:30 97 02/03/25 20:25 02/03/25 19:34 97 02/03/25 19:31 02/03/25 19:15 95 02/03/25 18:40 02/03/25 17:55 02/03/25 17:25 96 02/03/25 16:07 94 L 02/03/25 15:08 96 02/03/25 14:19 94 L Intake and Output 02/03/25 02/04/25 02/04/25 22:59 06:59 14:59 Other: # Voids 3 Weight 147.418 kg Results 02/04/25 06:27 02/03/25 09:55 Cardiac Enzymes 02/03/25 02/03/25 Range/Units 13:06 15:42 Troponin I <0.012 <0.012 (0.000-0.034) ng/mL CBC 02/04/25 Range/Units 06:27 WBC 6.01 (4.50-10.00) X 10*3/uL RBC 4.81 (4.40-5.60) X 10*6/uL Hgb 13.8 (13.0-17.0) g/dL Hct 41.8 (39.6-50.0) % Plt Count 173 (140-440) X 10*3/uL Current Medications Generic Name Dose Route Start Last Admin Trade Name Freq PRN Reason Stop Dose Admin Amlodipine Besylate 10 mg 02/05/25 09:00 Amlodipine 10 Mg Tab PO DAILY BABAK Apixaban 5 mg 02/03/25 21:00 02/04/25 10:04 Apixaban 5 Mg Tab PO 5 mg BID BABAK Administration Aspirin 81 mg 02/04/25 09:00 02/04/25 10:04 Aspirin 81 Mg PO 81 mg DAILY BABAK Administration Atorvastatin Calcium 40 mg 02/03/25 21:00 02/03/25 20:26 Atorvastatin 40 Mg Tab PO 40 mg HS BABAK Administration Chlorthalidone 25 mg 02/04/25 09:00 02/04/25 10:07 Chlorthalidone 25 Mg Tab PO 25 mg DAILY BABAK Administration Clonidine 0.3 mg 02/04/25 16:00 Clonidine Hcl 0.1 Mg Tab PO TID BABAK Dextrose/Water 25 ml 02/03/25 13:43 Dextrose 50% Syringe 50 Ml IVP PER PROTOCOL PRN Hypoglycemia Protocol Dextrose/Water 50 ml 02/03/25 13:43 Dextrose 50% Syringe 50 Ml IVP PER PROTOCOL PRN Hypoglycemia Protocol Gabapentin 800 mg 02/03/25 18:00 02/04/25 10:04 Gabapentin 400 Mg Cap PO 800 mg QID BABAK Administration Hydralazine HCl 50 mg 02/03/25 16:00 02/04/25 10:09 Hydralazine Hcl 50 Mg Tab PO 50 mg TID BABAK Administration Insulin Human Lispro 0 unit 02/03/25 17:30 02/04/25 06:56 Insulin Lispro (Humalog) 100 Unit/Ml 10 Ml Vl SQ Not Given ACHS [facility] Protocol Losartan Potassium 100 mg 02/04/25 09:00 02/04/25 10:05 Losartan 50 Mg Tab PO 100 mg DAILY BABAK Administration Multivitamins 1 each 02/04/25 09:00 02/04/25 10:04 Multivitamins, Thera 1 Each Tab PO 1 each DAILY BABAK Administration Nitroglycerin 0.4 mg 02/03/25 12:30 Nitroglycerin Sl Tabs 0.4 Mg Tab SUBLINGUAL Q5M PRN Chest Pain Intake and Output 02/03/25 02/04/25 02/04/25 22:59 06:59 14:59 Other: # Voids 3 Weight 147.418 kg 02/04/25 06:27 02/03/25 09:55
[2025-02-04 12:59] LABS: Anion Gap 12.50 mmol/L (4.00-12.00); BUN/Creat Ratio 12.82 Ratio (12.00-20.00); Blood Urea Nitrogen 14.1 mg/dL (9.0-27.0); Calcium 9.3 mg/dL (8.7-10.3); Carbon Dioxide 28.5 mmol/L (21.6-31.8); Chloride 102 mmol/L (96-109); Glucose 122 mg/dL (70-110); Magnesium 2.1 mg/dL (1.5-2.4); Potassium 3.6 mmol/L (3.5-5.5); Sodium 143 mmol/L (135-145)
[2025-02-04 13:08] LABS: Glucose,Whole Blood 132 mg/dL (70-110)
[2025-02-04 15:42] VITALS: BP 168/101; PULSE 81; RESP 16
--- NOTE | 2025-02-04 16:04 | P.PN ---
Subjective Progress Note Date: 02/04/25 Hospital course: Patient is a very pleasant 64-year-old male with a past medical history of hypertension, hyperlipidemia, CVA, DVT on anticoagulation with Eliquis, and [id number] diabetes mellitus. Patient presented to the emergency department with a chief complaint of chest pain. He reports pressure-like pain to left anterior chest starting at rest and remained constant. He denies any as sociated symptoms including dizziness, lightheadedness, headache, palpitations, shortness of breath, cough or congestion, nausea, vomiting, diaphoresis, or experiencing any numbness/tingling/weakness/swelling in his extremities. Patient denies having any history of heart disease or previous stent placement and denies ever following with a bank officer. Upon arrival to our facility, patient underwent evaluation in the emergency department. Vital signs upon arrival show blood pressure 200/95, heart rate 69, respiratory rate 20, temp 98.0 F, and SpO2 of 98% on room air. EKG completed showing sinus mechanism at 64 bpm with a right bundle branch block otherwise no significant T wave or ST ab normality showing no signs of acute ischemia upon personal review and interpretation. Chest x-ray completed negative for acute cardiopulmonary process. Labs completed and reviewed. CBC unremarkable. Coagulation profile normal findings. BMP unremarkable. Blood glucose 117. Calcium 9.4. Magnesium 1.9. Liver profile normal findings. Troponin was 0.029. Patient reports he had improvement of pain after receiving Nitropaste in the emergency department but states slight pain continues, like he feels it but it is not uncomfortable. Currently rates 1-2 out of 10. Patient admitted under our services with consultation to cardiology. Troponins were trended resulting at 0.029, less than 0.012 and less than 0.012. Lipid profile showing elevated triglycerides of 186 otherwise normal findings. Hemoglobin A1c elevated at 6.4%. Patient's blood pressure improved but remains elevated since starting on amlodipine at 166/83 this morning. Cardiology evaluated and increasing amlodipine to 10 mg daily and changing clonidine to 0.3 mg 3 times daily. Physical exam: Patient seen and fully evaluated at the bedside this morning. He reports chest pain resolved yesterday evening and has had no further episodes of chest pain throughout the night or morning. He denies any other complaints including dizziness, lightheadedness, palpitations, shortness of breath, cough or congestion. Patient expressing concerns that he is wanting to be discharged because he has purchased over $2000 worth of fireworks and will be going home today to light them off. Patient was informed that bank officer is recommending echocardiogram and that we are watching blood pressure in hopes for better optimization prior to discharge Vital signs reviewed and stable. General: Nontoxic, no distress and appears stated age. Derm: Skin warm and dry, normal coloration for ethnicity. Head: Atraumatic, normocephalic and symmetric. Eyes: EOM's intact, no lid lag, and anicteric sclera Mouth: no lip lesions, mucus membranes moist Cardiovascular: regular rate and rhythm with normal S1S2, soft systolic murmur, positive posterior tibial pulses bilaterally, and cap refill < 2 seconds. Lungs: Respirations even, regular, and unlabored on room air. Lungs CTA bilaterally, no rhonchi, no rales, no wheezing, and no accessory muscle usage. Abdominal: soft, nontender to palpation, no guarding, no appreciable org anomegaly Ext: ROM intact. No gross muscle atrophy, no edema, no contractures Neuro: Speech clear, face symmetrical and CN II-XII grossly intact with no noted focal neuro deficits Psych: Alert and oriented to person, place, time, and situation. Appropriate and pleasant affect. Assessment and Plan of Care: Chest pain, rule out acute coronary event Hypertensive urgency Hyperlipidemia -Cardiology following. Discussed plan of care with cardiac MACHINE TECHNICIAN patient to undergo echocardiogram and they are increasing amlodipine to 10 mg daily and changing clonidine to 0.3 mg 3 times daily. Further recommendations forthcoming pending echocardiogram results. Patient to follow-up outpatient for stress test ing once blood pressure is better controlled -Telemetry monitoring -Troponins were trended resulting at 0.029, less than 0.012 and less than 0.012. Lipid profile showing elevated triglycerides of 186 otherwise normal findings. Hemoglobin A1c elevated at 6.4%. -Aspirin 81 mg daily, atorvastatin 40 mg nightly, chlorthalidone 25 mg daily, clonidine 0.3 mg 3 times daily, hydralazine 50 mg 3 times daily, amlodipine 10 mg daily, and losartan 100 mg daily. -Echocardiogram to be completed History of DVT Continue anticoagulation with Eliquis 5 mg twice daily. History of CVA Continue aspirin 81 mg daily and atorvastatin 40 mg nightly. [id number] diabetes mellitus. Hold Trulicity and metformin and continue glycemic protocol with Humalog sliding scale. Hemoglobin A1c 6.4%. Data and imaging reviewed: Labs reviewed. Troponins were trended resulting at 0.029, less than 0.012 and less than 0.012. Lipid profile showing elevated triglycerides of 186 otherwise normal findings. Hemoglobin A1c elevated at 6.4%. CBC unremarkable. Coagulation profile normal findings. Blood glucose 122. Vital signs reviewed. Blood pressure 166/83, heart rate 76, respiratory rate 17, temp 97.5 F, and SpO2 of 97% on room air. CODE STATUS: Full code DVT prophylaxis: Eliquis Discussed with: Patient, RN, and cardiology MACHINE TECHNICIAN Anticipated discharge date: Pending clinical course, likely 24 to [address]: Home Patient was seen independently by Nurse Practitioner. This document was prepared using [employer] dictation software. Please allow for errors in mechanical spreader operator while rare they do occur. Alexander Alfaro NP rendered care for this patient independently, reviewed the findings and plan as documented in the note above and agree with plan. I did not physically speak with or examine the patient on this date. Objective - Vital Signs Vital signs: Vital Signs Temp 97.5 F L 02/04/25 07:00 Pulse 76 02/04/25 07:00 Resp 17 02/04/25 07:00 BP 166/83 02/04/25 07:00 Pulse Ox 97 02/04/25 07:00 FiO2 Intake & Output 02/03/25 02/04/25 02/04/25 18:59 06:59 18:59 Weight 147.418 kg Other: # Voids 3 - Labs CBC & Chem 7: 02/04/25 06:27 02/04/25 06:27 Labs: Abnormal Lab Results - Last 24 Hours (Table) 02/03/25 02/03/25 02/03/25 Range/Units 09:55 14:15 17:08 Glucose 117 H (74-99) mg/dL POC Glucose (mg/dL) 119 H 131 H (70-110) mg/dL 02/04/25 Range/Units 05:06 Glucose (74-99) mg/dL POC Glucose (mg/dL) 116 H (70-110) mg/dL
--- NOTE | 2025-02-04 16:50 | P.DS ---
Providers Date of admission: 02/03/25 12:30 Expected date of discharge: 02/04/25 Attending physician: Jalen Willard Consults: 02/03/25 12:30 Consult Physician Urgent Consulting Provider: [facility] Consult Reason/Comments: Chest pain Do you want consulting provider notified?: Yes Primary care physician: Anirudh Min DO Hospital Course: Discharge Diagnosis: Chest pain, acute coronary event ruled. Troponins were trended resulting at 0.029, less than 0.012, and less than 0.012. Lipid profile showed elevated triglycerides of 186 otherwise normal findings. Hemoglobin A1c was elevated at 6.4%. Patient was evaluated by cardiology and they increased amlodipine to 10 mg daily and change clonidine to 0.3 mg 3 times daily. Echocardiogram was completed. [place] was paged by RN at 3:30 PM as patient was adamantly requesting discharge. Was notified by RN at 4:18 PM that gas plant operator returned call and stated he will not be returning to read any further echocardiograms and that echocardiogram will be reviewed and report will be completed tomorrow. Patient was strongly encouraged to remain hospitalized overnight and await [facility] clearance for discharge however patient adamant that he has not had chest pain since shortly after arrival yesterday and is adamant on leaving. Will place discharge order per patient's request despite recommendations to remain hospitalized to ensure patient receives appropriate changes to his antihypertensive medications. Hypertensive urgency Hyperlipidemia History of DVT. Continue anticoagulation with Eliquis 5 mg twice daily. History of CVA. Continue aspirin 81 mg daily and atorvastatin 40 mg nightly. [id number]-[id number] diabetes mellitus. Hemoglobin A1c 6.4%. [facility] regimen of Trulicity and metformin Hospital Course: Patient is a very pleasant 64-year-old male with a past medical history of hypertension, hyperlipidemia, CVA, DVT on anticoagulation with Eliquis, and pxv-[id number] diabetes mellitus. Patient presented to the emergency department with a chief complaint of chest pain. He reports pressure-like pain to left anterior chest starting at rest and remained constant. He denies any associated symptoms including dizziness, lightheadedness, headache, palpitations, shortness of breath, cough or congestion, nausea, vomiting, diaphoresis, or experiencing any numbness/tingling/weakness/swelling in his extremities. Patient denies having any history of heart disease or previous stent placement and denies ever following with a gas plant operator. Upon arrival to our facility, patient underwent evaluation in the emergency department. Vital signs upon arrival show blood pressure 200/95, heart rate 69, respiratory rate 20, temp 98.0 F, and SpO2 of 98% on room air. EKG completed showing sinus mechanism at 64 bpm with a right bundle branch block otherwise no significant T wave or ST abnormality showing no signs of acute ischemia upon personal review and interpretation. Chest x-ray completed negative for acute cardiopulmonary process. Labs completed and reviewed. CBC unremarkable. Coagulation profile normal findings. BMP unremarkable. Blood glucose 117. Calcium 9.4. Magnesium 1.9. Liver profile normal findings. Troponin was 0.029. Patient reports he had improvement of pain after receiving Nitropaste in the emergency department but states slight pain continues, like he feels it but it is not uncomfortable. Currently rates 1-2 out of 10. Patient admitted under our services with consultation to cardiology. Troponins were trended resulting at 0.029, less than 0.012 and less than 0.012. Lipid profile showing elevated triglycerides of 186 otherwise normal findings. Hemoglobin A1c elevated at 6.4%. Patient's blood pressure improved but remains elevated since starting on amlodipine at 166/83 this morning. Cardiology evaluated and increasing amlodipine to 10 mg daily and changing clonidine to 0.3 mg 3 times daily. Echocardiogram was completed. [place] was paged by RN at 3:30 PM as patient was adamantly requesting discharge. Was notified by RN at 4:18 PM that gas plant operator returned call and stated he will not be returning to read any further echocardiograms and that echocardiogram report will be completed tomorrow. Patient was strongly encouraged to remain hospitalized overnight and await cardiac clearance for discharge however patient adamant that he has not had chest pain since shortly after arrival yesterday and is adamant on leaving. Will place discharge order per patient's request despite recommendations to remain hospitalized to ensure patient receives appropriate changes to his antihypertensive medications. Patient was encouraged to monitor his blood pressure closely at home and document findings and a daily log to bring with him to his next appointment with his PCP and gas plant operator. Patient to follow-up outpatient with his PCP and 3-4 days secondary to holiday and with gas plant operator in 1 week. Patient instructed to return to the emergency department or call 911 immediately if chest pain returns Physical exam: Vital signs reviewed and stable. General: Nontoxic, no distress and appears stated age. Derm: Skin warm and dry, normal coloration for ethnicity. Head: Atraumatic, normocephalic and symmetric. Eyes: EOM's intact, no lid lag, and anicteric sclera Mouth: no lip lesions, mucus membranes moist Cardiovascular: regular rate and rhythm with normal S1S2, soft systolic murmur, positive posterior tibial pulses bilaterally, and cap refill < 2 seconds. Lungs: Respirations even, regular, and unlabored on room air. Lungs CTA bilaterally, no rhonchi, no rales, no wheezing, and no accessory muscle usage. Abdominal: soft, nontender to palpation, no guarding, no appreciable organomegaly Ext: ROM intact. No gross muscle atrophy, no edema, no contractures Neuro: Speech clear, face symmetrical and CN II-XII grossly intact with no noted focal neuro deficits Psych: Alert and oriented to person, place, time, and situation. Appropriate and pleasant affect. A total of 31 minutes of time were spent preparing this complex discharge summary. Pt was discharged on 02/04/2025 at 4:36 PM Patient was seen independently by Nurse Practitioner. This document was prepared using ([employer] dictation software. Please allow for errors in easement man while rare they do occur. Alexander Alfaro NP rendered care for this patient independently, reviewed the findings and plan as documented in the note above. I did not physically speak with or examine the patient on this date. Patient Condition at Discharge: Stable Plan - Discharge Summary Discharge Rx Participant: Yes New Discharge Prescriptions: New cloNIDine HCL [Catapres] 0.3 mg PO TID 30 Days #90 tab amLODIPine [Norvasc] 10 mg PO DAILY 30 Days #30 tab Atorvastatin [Lipitor] 40 mg PO HS 30 Days #30 tab Continue metFORMIN HCL [Glucophage] 1,000 mg PO BID Aspirin 81 mg PO DAILY Apixaban [Eliquis] 5 mg PO BID Mv-Min/Folic/K1/Lycopen/Lutein [Centrum Silver Men Tablet] 1 tab PO DAILY Chlorthalidone 25 mg PO DAILY hydrALAZINE HCL 50 mg PO TID Gabapentin [Neurontin] 800 mg PO QID Losartan Potassium [Cozaar] 100 mg PO DAILY Dulaglutide [Trulicity] 3 mg SQ SA Discontinued cloNIDine HCL [Catapres] 0.2 mg PO QID Discharge Medication List Apixaban [Eliquis] 5 mg PO BID 03/23/17 [History] Aspirin 81 mg PO DAILY 03/23/17 [History] Mv-Min/Folic/K1/Lycopen/Lutein [Centrum Silver Men Tablet] 1 tab PO DAILY 03/23/17 [History] metFORMIN HCL [Glucophage] 1,000 mg PO BID 03/23/17 [History] Chlorthalidone 25 mg PO DAILY 10/02/20 [History] Gabapentin [Neurontin] 800 mg PO QID 10/02/20 [History] hydrALAZINE HCL 50 mg PO TID 10/02/20 [History] Dulaglutide [Trulicity] 3 mg SQ SA 02/03/25 [History] Losartan Potassium [Cozaar] 100 mg PO DAILY 02/03/25 [History] Atorvastatin [Lipitor] 40 mg PO HS 30 Days #30 tab 02/04/25 [Rx] amLODIPine [Norvasc] 10 mg PO DAILY 30 Days #30 tab 02/04/25 [Rx] cloNIDine HCL [Catapres] 0.3 mg PO TID 30 Days #90 tab 02/04/25 [Rx] Follow up Appointment(s)/Referral(s): Terence Bennett MD [STAFF PHYSICIAN] - 1 Week Anirudh Min DO [Primary Care Provider] - 1-2 days Patient Instructions/Handouts: Chest Pain (DC), Hypertensive Crisis (DC) Activity/Diet/Wound Care/Special Instructions: Activity: As tolerated. Take breaks as needed. Diet: Heart healthy and carb consistent diet. Avoid salts, or foods with hidden salts such as canned or boxed foods and frozen dinners. Extra salt makes your heart work harder and traps the fluid in your body for longer. Special Instructions: Take all of your medications as directed and remember to keep all of your doctor's appointments and follow-up as needed. Your echocardiogram was completed, however results not yet available at this time. You are strongly encouraged to stay in hospital to await gas plant operator to read this echocardiogram however you declined at this time. You are being discharged per your request. Recommend outpatient follow-up with your PCP as well as cardiology in 1 week. Recommend monitoring your blood pressure closely at home twice daily and documenting these findings and a daily log to bring with you to your next doctor's appointment with both your PCP and gas plant operator. Return to the emergency department or call 911 immediately if chest pain returns Thank you for allowing us to participate in your care, it was truly a pleasure having you for our patient!!! Discharge Disposition: HOME SELF-CARE
--- NOTE | 2025-02-04 18:58 | CA ---
Transthoracic Echo Report Name: Talon Whiting Age: 64 Gender: M : 1960 Exam Date: 02/04/2025 14:38 Exam Location: [facility] Ht (in): 69 Wt (lb): 325 Ordering Physician: Kelsi Stanford Attending/Referring Phys: [id number], [employer] Dinah Christina, RAUL Procedure CPT: Indications: CP, uncontrolled HTN, pending DC Cardiac Hx: Technical Quality: Fair Contrast 1: Definity Total Dose (mL): 2 Contrast 2: Total Dose (mL): MEASUREMENTS (Male / Female) Normal Values 2D ECHO LV Diastolic Diameter PLAX 5.7 cm 4.2 - 5.9 / 3.9 - 5.3 cm LV Systolic Diameter PLAX 3.8 cm IVS Diastolic Thickness 1.9 cm 0.6 - 1.0 / 0.6 - 0.9 cm LVPW Diastolic Thickness 1.7 cm 0.6 - 1.0 / 0.6 - 0.9 cm LV Relative Wall Thickness 0.6 RV Internal Dim ED PLAX 3.7 cm LA Systolic Diameter LX 4.5 cm 3.0 - 4.0 / 2.7 - 3.8 cm LA Volume 80.4 cm??? 18 - 58 / 22 - 52 cm??? LA Volume Index 29.1 cm???/m??? 16 - 28 cm???/m??? M-MODE Aortic Root Diameter MM 3.6 cm AV Cusp Separation MM 2.8 cm DOPPLER AV Peak Velocity 148.7 cm/s AV Peak Gradient 8.8 mmHg MV Area PHT 2.5 cm??? Mitral E Point Velocity 74.5 cm/s Mitral A Point Velocity 101.0 cm/s Mitral E to A Ratio 0.7 MV Deceleration Time 309.4 ms TR Peak Velocity 228.6 cm/s TR Peak Gradient 20.9 mmHg Right Ventricular Systolic Press 24.8 mmHg FINDINGS Left Ventricle Left ventricular ejection fraction is estimated at 50-55 %. Left ventricular cavity size normal. Severe concentric left ventricular hypertrophy. No obvious regional wall motion abnormalities. Right Ventricle Mild right ventricular dilatation. Right ventricular systolic pressure within normal limits. Right Atrium Right atrium not well visualized. Left Atrium Mildly increased left atrial diameter. Mildly increased left atrial volume. Mildly increased left atrial area. No left atrial thrombus or mass present. Mitral Valve Structurally normal mitral valve. No mitral stenosis, regurgitation or prolapse. Aortic Valve Trileaflet aortic valve. Aortic valve sclerosis. Tricuspid Valve Structurally normal tricuspid valve. Mild tricuspid regurgitation. Pulmonic Valve Pulmonic valve not well visualized. No pulmonic regurgitation. Pericardium No pericardial effusion. Aorta Normal size aortic root and proximal ascending aorta. CONCLUSIONS Normal LV function Previewed by: Dr. Terence Bennett MD (Electronically Signed) Final Date: 04 February 2025 18:57
[2025-02-05] MEDS ORDERED: amLODIPine 10 MG TAB PO SCH (09:00)
== END 2025-02-04 17:15 | disposition home or self-care (01) ==
LOC: SUPCPDRO 07:44 → EC 07:44 → 6NMEDSUR 12:30
PROVIDERS: ADMIT Student in an Organized Health Care Education/Training Program; ATTEND Student in an Organized Health Care Education/Training Program
DX: R07.89 Other chest pain (principal); I16.1 Hypertensive emergency; I10 Essential (primary) hypertension; E11.9 Type 2 diabetes mellitus without complications; E78.5 Hyperlipidemia, unspecified; E66.01 Morbid (severe) obesity due to excess calories; Z68.41 Body mass index [BMI] 40.0-44.9, adult; Z86.718 Personal history of other venous thrombosis and embolism; Z86.73 Personal history of transient ischemic attack (TIA), and cerebral infarction without residual deficits; Z87.891 Personal history of nicotine dependence; Z79.01 Long term (current) use of anticoagulants; Z79.82 Long term (current) use of aspirin; Z79.899 Other long term (current) drug therapy; Z79.1 Long term (current) use of non-steroidal anti-inflammatories (NSAID); Z79.84 Long term (current) use of oral hypoglycemic drugs; Z79.85 Long-term (current) use of injectable non-insulin antidiabetic drugs
CPT/HCPCS: 99285; 36415; 93005; 83835; 80061; 80053; 80048; 82533; 82088; 84244; 83735 ×2; 84484; 85025; 85027; 85610; 85730; 83036; 71046; G0378 ×2; C8929; Q9957; 93306